=== PATIENT | female | born 1985 | race Caucasian/White ===

== ENCOUNTER 2018-05-14 13:54 | Inpatient (IN) | payer BC, MEDICAID ==
--- NOTE | 2018-05-14 14:27 | ER Document Report ---
ED Cardiac - General Chief Complaint: Chest Pain Stated Complaint: HEADACHE Time Seen by Provider: 05/14/18 14:19 Mode of Arrival: Medic Information source: Patient, Parent - PATIENT'S MOTHER INTERVIEWED @ 1640 HRS. Cannot obtain history due to: Altered mental status - lethargic TRAVEL OUTSIDE OF THE [place] IN LAST 30 DAYS: No - HPI Patient complains to provider of: Chest pain Use of: denies: Alcohol, Amphetamines, Bath salts, Caffeine, Cocaine, Decongestants Was the onset of pain: Gradual When did pain begin: THIS A.M. Is the pain a: New problem Chest pain location: Substernal Quality of pain: Burning Chest pain radiation location: None Severity now: Moderate Severity at worst: Moderate Cardiac risk factors: Diabetes Positive cardiac history: No Associated symptoms: Weakness. denies: Diaphoresis, Fever/chills, Nausea/ vomiting, Shortness of breath, Syncope Exacerbated by: Denies Relieved by: Nothing Similar symptoms previously: No Recently seen / treated by doctor: No Past Medical History - General Information source: Patient, Parent - Social History Smoking Status: Unknown if Ever Smoked Cigarette use (# per day): No Chew tobacco use (# tins/day): No Frequency of alcohol use: None Drug Abuse: None Lives with: Alone Family History: DM Patient has suicidal ideation: No Patient has homicidal ideation: No - Past Medical History Cardiac Medical History: Reports: None Pulmonary Medical History: Reports: None EENT Medical History: Reports: None Endocrine Medical History: Reports: Hx Diabetes Mellitus Type 1 Renal/ Medical History: Reports: None Malignancy Medical History: Reports: None GI Medical History: Reports: None Psychiatric Medical History: Reports: None Traumatic Medical History: Reports: None Past Surgical History: Reports: Hx Breast Surgery - IMPLANTS & SUBSEQUENT REMOVAL Review of Systems - Review of Systems -: Yes ROS unobtainable due to patient's medical condition Physical Exam - Vital signs Vitals: Pulse Ox 98 05/14/18 15:22 Interpretation: Hypotensive, Tachycardic, Tachypneic - General General appearance: Lethargic In distress: None - HEENT Head: Normocephalic Eyes: Normal Conjunctiva: Normal Ears: Normal Nasal: Normal Mouth/Lips: Normal Mucous membranes: Dry - MILDLY Pharynx: Normal Neck: Normal - Respiratory Respiratory status: No respiratory distress Breath sounds: Normal - Cardiovascular Rhythm: Regular, Tachycardia Heart sounds: Normal auscultation Murmur: No - Abdominal Inspection: Normal Distension: No distension Bowel sounds: Hypoactive Tenderness: Nontender - Extremities General upper extremity: Normal inspection General lower extremity: Normal inspection - Neurological Neuro grossly intact: Yes Cognition: Normal Orientation: AAOx4 - Psychological Associated symptoms: Normal affect, Normal mood - Skin Skin Temperature: Warm Skin Moisture: Dry Skin Color: Erythema Skin Turgor: Elastic Course - Vital Signs Vital signs: Temp Pulse Resp BP Pulse Ox 97.3 F 98 05/14/18 15:55 05/14/18 15:22 - Laboratory Result Diagrams: 05/14/18 14:06 05/14/18 14:06 Laboratory results interpreted by me: 05/14/18 05/14/18 05/14/18 14:06 14:06 15:12 WBC 12.3 H Seg Neutrophils % 90.0 H Lymphocytes % 8.8 L Monocytes % 1.0 L Absolute Neutrophils 11.0 H Potassium 5.4 H Carbon Dioxide 9 L* Anion Gap 26 H BUN 21 H Glucose 350 H POC Glucose Total Bilirubin 1.4 H Direct Bilirubin 0.5 H Urine Glucose (UA) >=500 H Urine Ketones 80 H Urine Blood SMALL H 05/14/18 05/14/18 16:01 17:01 WBC Seg Neutrophils % Lymphocytes % Monocytes % Absolute Neutrophils Potassium Carbon Dioxide Anion Gap BUN Glucose POC Glucose 371 H 374 H Total Bilirubin Direct Bilirubin Urine Glucose (UA) Urine Ketones Urine Blood - Diagnostic Test Radiology reviewed: Image reviewed, Reports reviewed - EKG Interpretation by Me EKG shows normal: Sinus rhythm, QRS Complexes, ST-T Waves. abnormal: Thompson, Intervals - LONG QT Rate: Tachycardia Thompson/QRS: Left axis deviation - BORDERLINE - Consults DR. KIM Time consulted: 17:48 Consulted provider: will come to ER Discharge - Discharge Clinical Impression: Diabetic ketoacidosis Qualifiers: Diabetes mellitus type: type 1 Diabetes mellitus complication detail: without coma Qualified Code(s): E10.10 - Type 1 diabetes mellitus with ketoacidosis without coma Condition: Fair Disposition: ADMITTED INPATIENT Admitting Provider: Hospitalist Referrals: SANTINO MUSA MD [Primary Care Provider] - Follow up as needed
[2018-05-14 14:37] LABS: ABSOLUTE LYMPHOCYTES (AUTO) 1.1 10^3/uL (0.5-4.7); ABSOLUTE MONOCYTES (AUTO) 0.1 10^3/uL (0.1-1.4); BASOPHILS % (AUTO) 0.1 % (0-2); EOSINOPHILS % (AUTO) 0.1 % (0-6); HEMATOCRIT 43.5 % (36.0-47.0); HEMOGLOBIN 14.3 g/dL (12.0-15.5); LYMPHOCYTES % (AUTO) 8.8 % (13-45); MEAN CORPUSCULAR HEMOGLOBIN 31.5 pg (27.0-33.4); MEAN CORPUSCULAR VOLUME 95 fl (80-97); PLATELET COUNT 181 10^3/uL (150-450); RED BLOOD COUNT 4.56 10^6/uL (3.72-5.28); RED CELL DISTRIBUTION WIDTH 13.3 % (11.5-14.0); TOTAL CELLS COUNTED % (AUTO) 100 %; WHITE BLOOD COUNT 12.3 10^3/uL (4.0-10.5)
[2018-05-14 14:51] LABS: ALANINE AMINOTRANSFERASE 19 U/L (9-52); ALBUMIN 4.5 g/dL (3.5-5.0); ALKALINE PHOSPHATASE 47 U/L (38-126); ASPARTATE AMINO TRANSFERASE 18 U/L (14-36); BILIRUBIN,DIRECT 0.5 mg/dL (0.0-0.4); BILIRUBIN,TOTAL 1.4 mg/dL (0.2-1.3); BLOOD UREA NITROGEN 21 mg/dL (7-20); CALCIUM 9.2 mg/dL (8.4-10.2); CREATINE KINASE 39 U/L (30-135); GLUCOSE 350 mg/dL (75-110); POTASSIUM 5.4 mmol/L (3.6-5.0); TOTAL PROTEIN 7.5 g/dL (6.3-8.2)
[2018-05-14 15:09] LABS: CHLORIDE 105 mmol/L (98-107); SODIUM 140.4 mmol/L (137-145)
[2018-05-14 15:10] LABS: CREATINE KINASE MB 0.24 ng/mL (<4.55)
[2018-05-14 15:16] LABS: ANION GAP 26 (5-19); CARBON DIOXIDE 9 mmol/L (22-30)
[2018-05-14 15:17] LABS: TROPONIN I < 0.012 ng/mL
[2018-05-14] MEDS ORDERED: NORMAL SALINE 100 ML with INSULIN REGULAR, HUMAN 100 UNIT IV PRN ×2 (15:22)
--- NOTE | 2018-05-14 15:27 | RADIOLOGY REPORT (SQ) ---
EXAM DESCRIPTION: CHEST SINGLE VIEW COMPLETED DATE/TIME: 05/14/2018 3:12 pm REASON FOR STUDY: CHEST PAIN COMPARISON: None. EXAM PARAMETERS: NUMBER OF VIEWS: One view. TECHNIQUE: Single frontal radiographic view of the chest acquired. RADIATION DOSE: NA LIMITATIONS: None. FINDINGS: LUNGS AND PLEURA: No opacities, masses or pneumothorax. No pleural effusion. MEDIASTINUM AND HILAR STRUCTURES: No masses. Contour normal. HEART AND VASCULAR STRUCTURES: Heart normal in size. Normal vasculature. BONES: No acute findings. HARDWARE: None in the chest. OTHER: No other significant finding. IMPRESSION: NO ACUTE RADIOGRAPHIC FINDING IN THE CHEST. TECHNICAL DOCUMENTATION: JOB ID: [id number] [employer]- All Rights Reserved Reading location - IP/workstation name: [email or web address]
[2018-05-14] MEDS ORDERED: INSULIN REG, HUMAN 100 UNIT/ML 3 ML VIAL (PYX) ONE (15:43)
[2018-05-14 15:49] LABS: APPEARANCE,URINE CLEAR; BILIRUBIN,URINE NEGATIVE (NEGATIVE); COLOR,URINE YELLOW; GLUCOSE, URINE >=500 mg/dL (NEGATIVE); KETONES,URINE 80 mg/dL (NEGATIVE); LEUKOCYTE ESTERASE,URINE NEGATIVE (NEGATIVE); NITRITE,URINE NEGATIVE (NEGATIVE); PROTEIN,URINE NEGATIVE (NEGATIVE); URINE SPECIFIC GRAVITY 1.021; UROBILINOGEN,URINE NEGATIVE mg/dL (<2.0)
[2018-05-14] MEDS: NORMAL SALINE 1000 ML 2,000 ML IV PRN ×2 (16:04→19:41)
[2018-05-14 16:07] LABS: URINE AMPHETAMINES SCREEN NEGATIVE; URINE BARBITURATES SCREEN NEGATIVE; URINE BENZODIAZEPINES SCREEN NEGATIVE; URINE COCAINE SCREEN NEGATIVE; URINE MARIJUANA (THC) SCREEN NEGATIVE; URINE METHADONE SCREEN NEGATIVE; URINE PHENCYCLIDINE SCREEN NEGATIVE
[2018-05-14] MEDS ORDERED: NALOXONE HCL INJ/PF 0.4 MG/1 ML SDV IV ONE (16:48)
[2018-05-14 17:28] LABS: VENOUS BLOOD BASE EXCESS -17.1 mmol/L; VENOUS BLOOD HCO3 10.9 mmol/L (20-32)
[2018-05-14] MEDS ORDERED: IPRATROPIUM/ALBUTEROL 0.5-2.5 MG/3 ML AMPUL NEB PRN (18:05)
[2018-05-14] MEDS ORDERED: PROMETHAZINE HCL INJ 25 MG/1 ML VIAL IV PRN (18:05)
[2018-05-14] MEDS ORDERED: ACETAMINOPHEN 325 MG TABLET PO PRN (18:05)
[2018-05-14] MEDS ORDERED: OXYCODONE-ACETAMINOPHEN 5-325 MG TABLET PO PRN (18:05)
[2018-05-14 18:09] LABS: VENOUS BLOOD PH 7.14 (7.30-7.42)
--- NOTE | 2018-05-14 18:27 | PDOC H&P ---
History of Present Illness Admission Date/PCP: SANTINO MUSA MD Patient complains of: This patient presents to the emergency room complaining of headache. She denies any nausea vomiting diaphoresis. She did complain of chest pain. History of Present Illness: CHRISTINA DOUGLAS is a 32 year old female This patient presents to the emergency room complaining of headache. She denies any nausea vomiting diaphoresis. She did complain of chest pain. Patient says she is a type I diabetic although she has not been diabetic for 2 years at the age of 30. She admits to not using her insulin as prescribed in fact she could not determine when she last used it. Her blood sugar had been high but she only decided to come today due to the generalized aches and pain. In the emergency room she was found to be ketotic with pH of 7.1 and a bicarbonate of 10. Her blood sugar was actually only 350. She denies any other pertinent symptoms or complaints Past Medical History Cardiac Medical History: Reports: None Pulmonary Medical History: Reports: None EENT Medical History: Reports: None Endocrine Medical History: Reports: Diabetes Mellitus Type 1 Renal/ Medical History: Reports: None Malignancy Medical History: Reports: None GI Medical History: Reports: None Psychiatric Medical History: Reports: None Traumatic Medical History: Reports: None Past Surgical History Past Surgical History: Reports: None Social History Information Source: Patient Lives with: Alone Smoking Status: Unknown if Ever Smoked Hx Recreational Drug Use: No - Advance Directive Resuscitation Status: Full Code Family History Family History: DM Parental Family History Reviewed: Yes Children Family History Reviewed: NA Sibling(s) Family History Reviewed.: Yes Review of Systems All systems: reviewed and no additional remarkable complaints except as stated Physical Exam Vital Signs: Temp Pulse Resp BP Pulse Ox 97.3 F 26 H 105/78 100 05/14/18 15:55 05/14/18 18:01 05/14/18 18:01 05/14/18 18:01 Intake & Output 05/13/18 05/14/18 05/15/18 06:59 06:59 06:59 Intake Total 7 Balance 7 Weight 67.2 kg General appearance: PRESENT: no acute distress, well-developed, well-nourished Head exam: PRESENT: atraumatic, normocephalic Eye exam: PRESENT: conjunctiva pink, EOMI, PERRLA. ABSENT: scleral icterus Ear exam: PRESENT: normal external ear exam Mouth exam: PRESENT: moist, tongue midline Neck exam: ABSENT: carotid bruit, JVD, lymphadenopathy, thyromegaly Respiratory exam: PRESENT: clear to auscultation claus. ABSENT: rales, rhonchi, wheezes Cardiovascular exam: PRESENT: RRR. ABSENT: diastolic murmur, rubs, systolic murmur Pulses: PRESENT: normal dorsalis pedis pul Vascular exam: PRESENT: normal capillary refill GI/Abdominal exam: PRESENT: normal bowel sounds, soft. ABSENT: distended, guarding, mass, organolmegaly, rebound, tenderness Rectal exam: PRESENT: deferred Extremities exam: PRESENT: full ROM. ABSENT: calf tenderness, clubbing, pedal edema Neurological exam: PRESENT: alert, awake, oriented to person, oriented to place , oriented to time, oriented to situation, CN II-XII grossly intact. ABSENT: motor sensory deficit Psychiatric exam: PRESENT: appropriate affect, normal mood. ABSENT: homicidal ideation, suicidal ideation Skin exam: PRESENT: dry, intact, warm. ABSENT: cyanosis, rash Results Laboratory Results: 05/14/18 14:06 05/14/18 14:06 05/14/18 05/14/18 05/14/18 14:06 14:06 14:06 WBC 12.3 H RBC 4.56 Hgb 14.3 Hct 43.5 MCV 95 MCH 31.5 MCHC 33.0 RDW 13.3 Plt Count 181 Seg Neutrophils % 90.0 H Lymphocytes % 8.8 L Monocytes % 1.0 L Eosinophils % 0.1 Basophils % 0.1 Absolute Neutrophils 11.0 H Absolute Lymphocytes 1.1 Absolute Monocytes 0.1 Absolute Eosinophils 0.0 Absolute Basophils 0.0 VBG pH VBG pCO2 VBG HCO3 VBG Base Excess Sodium 140.4 Potassium 5.4 H Chloride 105 Carbon Dioxide 9 L* Anion Gap 26 H BUN 21 H Creatinine 0.87 Est GFR ( Amer) > 60 Est GFR (Non-Af Amer) > 60 Glucose 350 H Calcium 9.2 Total Bilirubin 1.4 H AST 18 ALT 19 Alkaline Phosphatase 47 Total Protein 7.5 Albumin 4.5 Serum HCG, Qual NEGATIVE Urine Color Urine Appearance Urine pH Ur Specific [place] Urine Protein Urine Glucose (UA) Urine Ketones Urine Blood Urine Nitrite Ur Leukocyte Esterase Urine WBC (Auto) 08/08/2105/14/18 05/14/18 15:12 15:51 17:02 WBC RBC Hgb Hct MCV MCH MCHC RDW Plt Count Seg Neutrophils % Lymphocytes % Monocytes % Eosinophils % Basophils % Absolute Neutrophils Absolute Lymphocytes Absolute Monocytes Absolute Eosinophils Absolute Basophils VBG pH Cancelled 7.14 L* VBG pCO2 Cancelled 33.0 L VBG HCO3 Cancelled 10.9 L VBG Base Excess Cancelled -17.1 Sodium Potassium Chloride Carbon Dioxide Anion Gap BUN Creatinine Est GFR ( Amer) Est GFR (Non-Af Amer) Glucose Calcium Total Bilirubin AST ALT Alkaline Phosphatase Total Protein Albumin Serum HCG, Qual Urine Color YELLOW Urine Appearance CLEAR Urine pH 5.0 Ur Specific [place] 1.021 Urine Protein NEGATIVE Urine Glucose (UA) >=500 H Urine Ketones 80 H Urine Blood SMALL H Urine Nitrite NEGATIVE Ur Leukocyte Esterase NEGATIVE Urine WBC (Auto) 2 05/14/18 05/14/18 14:06 14:06 Creatine Kinase 39 CK-MB (CK-2) 0.24 Troponin I < 0.012 Impressions: Chest X-Ray 05/14/18 14:21 IMPRESSION: NO ACUTE RADIOGRAPHIC FINDING IN THE CHEST. Assessment & Plan - Diagnosis (1) Diabetic ketoacidosis Qualifiers: Diabetes mellitus type: type 1 Is this a current diagnosis for this admission?: Yes (2) Dehydration Is this a current diagnosis for this admission?: Yes - Time Time Spent: 30 to 50 Minutes Medications reviewed and adjusted accordingly: Yes Anticipated discharge: Home Within: within 48 hours - Inpatient Certification Based on my medical assessment, after consideration of the patient's comorbidities, presenting symptoms, or acuity I expect that the services needed warrant INPATIENT care.: Yes Medical Necessity: Need For IV Fluids, Risk of Complication if Not Cared For in Hospital, Risk of Diagnosis Which Will Require Inpatient Eval/Care/Monitoring
--- NOTE | 2018-05-14 21:11 | EKG REPORT ---
SEVERITY:- ABNORMAL ECG - SINUS TACHYCARDIA BORDERLINE LEFT AXIS DEVIATION PROLONGED QT INTERVAL : Confirmed by: June Grimm MD 14-May-2018 21:09:47
[2018-05-14] MEDS ORDERED: INSULIN, REGULAR 100 UNIT/100 ML NORMAL SALINE IV PRN ×2 (21:45)
[2018-05-14] MEDS: FAMOTIDINE 20 MG TABLET PO SCH (21:57)
[2018-05-14 22:25] LABS: ANION GAP 11 (5-19); BLOOD UREA NITROGEN 20 mg/dL (7-20); CALCIUM 8.3 mg/dL (8.4-10.2); CARBON DIOXIDE 13 mmol/L (22-30); CHLORIDE 117 mmol/L (98-107); GLUCOSE 142 mg/dL (75-110); SODIUM 141.3 mmol/L (137-145)
[2018-05-14 22:39] LABS: POTASSIUM 4.1 mmol/L (3.6-5.0)
[2018-05-15] MEDS: DEXTROSE 5%-1/2 NORMAL SALINE 1,000 ML IV PRN ×2 (00:22→06:53)
[2018-05-15 07:03] LABS: HEMATOCRIT 35.1 % (36.0-47.0); MEAN CORPUSCULAR HEMOGLOBIN 32.4 pg (27.0-33.4); MEAN CORPUSCULAR HGB CONC 34.6 g/dL (32.0-36.0); MEAN CORPUSCULAR VOLUME 94 fl (80-97); PLATELET COUNT 158 10^3/uL (150-450); RED BLOOD COUNT 3.75 10^6/uL (3.72-5.28); RED CELL DISTRIBUTION WIDTH 13.1 % (11.5-14.0); WHITE BLOOD COUNT 14.9 10^3/uL (4.0-10.5)
[2018-05-15 07:22] LABS: HEMOGLOBIN 12.1 g/dL (12.0-15.5)
[2018-05-15 07:37] LABS: ANION GAP 10 (5-19); BLOOD UREA NITROGEN 16 mg/dL (7-20); CALCIUM 8.5 mg/dL (8.4-10.2); CARBON DIOXIDE 17 mmol/L (22-30); CHLORIDE 115 mmol/L (98-107); GLUCOSE 60 mg/dL (75-110); POTASSIUM 3.9 mmol/L (3.6-5.0); SODIUM 142.4 mmol/L (137-145)
[2018-05-15] MEDS ORDERED: INSULIN, REGULAR 100 UNIT/100 ML NORMAL SALINE IV PRN ×2 (08:40)
[2018-05-15] MEDS ORDERED: DEXTROSE 40% GEL 15 GM TUBE PO PRN (08:41)
[2018-05-15] MEDS ORDERED: DEXTROSE 50%-WATER SYRINGE 12.5 GM/25 ML DOSE IV PRN (08:41)
[2018-05-15] MEDS ORDERED: DEXTROSE 50%-WATER SYRINGE 25 GM/50 ML DOSE IV PRN (08:41)
[2018-05-15] MEDS ORDERED: GLUCAGON,HUMAN RECOMB 1 MG INJ IM PRN (08:41)
[2018-05-15] MEDS ORDERED: DEXTROSE 40% GEL 15 GM TUBE X 2 PO PRN (08:41)
[2018-05-15] MEDS: FAMOTIDINE 20 MG TABLET PO SCH ×2 (10:09→23:51)
[2018-05-15] MEDS: ENOXAPARIN SODIUM INJ 40 MG/0.4 ML DISP.SYRIN SUBCUT SCH (10:12)
[2018-05-15] MEDS: NORMAL SALINE 1000 ML 1,000 ML IV PRN ×2 (12:28→23:53)
--- NOTE | 2018-05-15 13:11 | PDOC PROGRESS REPORT ---
Subjective Progress Note for:: 05/15/18 Subjective:: Patient feels a lot better today. In fact she is awake and alert. She says she is not able to afford her insulin that is why she has not been taking it as prescribed. She is unemployed and has no insurance and has no means of obtaining her insulin. Acidosis has improved with CO2 been up to 17. Still on the insulin drip but we will recheck a BMP and adjust as needed for transfer was hypokalemic and this young lady to obtain on insulin. I have explained to her that she really needs to be compliant Reason For Visit: DKA Physical Exam Vital Signs: Temp Pulse Resp BP Pulse Ox 98.2 F 75 16 100/52 L 99 05/15/18 07:47 05/15/18 07:47 05/15/18 07:47 05/15/18 07:47 05/15/18 07:47 Intake & Output 05/14/18 05/15/18 05/16/18 06:59 06:59 06:59 Intake Total 5406 6 Balance 5406 6 Weight 66.3 kg General appearance: PRESENT: no acute distress, well-developed, well-nourished Head exam: PRESENT: atraumatic, normocephalic Eye exam: PRESENT: conjunctiva pink, EOMI, PERRLA. ABSENT: scleral icterus Ear exam: PRESENT: normal external ear exam Mouth exam: PRESENT: moist, tongue midline Neck exam: ABSENT: carotid bruit, JVD, lymphadenopathy, thyromegaly Respiratory exam: PRESENT: clear to auscultation claus. ABSENT: rales, rhonchi, wheezes Cardiovascular exam: PRESENT: RRR. ABSENT: diastolic murmur, rubs, systolic murmur Pulses: PRESENT: normal dorsalis pedis pul Vascular exam: PRESENT: normal capillary refill GI/Abdominal exam: PRESENT: normal bowel sounds, soft. ABSENT: distended, guarding, mass, organolmegaly, rebound, tenderness Rectal exam: PRESENT: deferred Extremities exam: PRESENT: full ROM. ABSENT: calf tenderness, clubbing, pedal edema Neurological exam: PRESENT: alert, awake, oriented to person, oriented to place , oriented to time, oriented to situation, CN II-XII grossly intact. ABSENT: motor sensory deficit Psychiatric exam: PRESENT: appropriate affect, normal mood. ABSENT: homicidal ideation, suicidal ideation Skin exam: PRESENT: dry, intact, warm. ABSENT: cyanosis, rash Results Laboratory Results: 05/15/18 06:21 05/15/18 06:21 05/14/18 05/15/18 05/15/18 22:05 06:21 06:21 WBC 14.9 H RBC 3.75 Hgb 12.1 D Hct 35.1 L MCV 94 MCH 32.4 MCHC 34.6 RDW 13.1 Plt Count 158 Sodium 141.3 142.4 Potassium 4.1 D 3.9 Chloride 117 H 115 H Carbon Dioxide 13 L 17 L Anion Gap 11 10 BUN 20 16 Creatinine 0.74 0.73 Est GFR ( Amer) > 60 > 60 Est GFR (Non-Af Amer) > 60 > 60 Glucose 142 H 60 L Calcium 8.3 L 8.5 Impressions: Chest X-Ray 05/14/18 14:21 IMPRESSION: NO ACUTE RADIOGRAPHIC FINDING IN THE CHEST. Assessment & Plan - Diagnosis (1) Diabetic ketoacidosis Qualifiers: Diabetes mellitus type: type 1 Is this a current diagnosis for this admission?: Yes (2) Dehydration Is this a current diagnosis for this admission?: Yes - Time Time Spent with patient: 15-24 minutes Medications reviewed and adjusted accordingly: Yes Anticipated discharge: Home Within: within 48 hours - Inpatient Certification Based on my medical assessment, after consideration of the patient's comorbidities, presenting symptoms, or acuity I expect that the services needed warrant INPATIENT care.: Yes Medical Necessity: Need For IV Fluids, Risk of Complication if Not Cared For in Hospital - Plan Summary Plan Summary: Plan is to continue with insulin and change her to subcutaneous insulin as soon as feasible. We will get social service involved to see what we can do to help her to ensure she is able to obtain insulin
[2018-05-15] MEDS ORDERED: INSULIN LISPRO 100 UNIT/ML 3 ML VIAL SUBCUT ONE (13:30)
[2018-05-15 15:40] LABS: ANION GAP 11 (5-19); BLOOD UREA NITROGEN 12 mg/dL (7-20); CALCIUM 8.3 mg/dL (8.4-10.2); CARBON DIOXIDE 17 mmol/L (22-30); CHLORIDE 112 mmol/L (98-107); GLUCOSE 249 mg/dL (75-110); POTASSIUM 4.2 mmol/L (3.6-5.0); SODIUM 139.9 mmol/L (137-145)
[2018-05-15] MEDS: HUM INSULIN NPH/REG INSULIN HM 100 UNIT/1 ML 3 ML SUBCUT SCH (17:16)
[2018-05-15] MEDS ORDERED: INSULIN GLARGINE,HUM.REC.ANLOG 300 UNIT/3 ML INSULN.PEN SUBCUT ONE (23:54)
[2018-05-15] MEDS: INSULIN GLARGINE,HUM.REC.ANLOG 300 UNIT/3 ML INSULN.PEN SUBCUT SCH (23:59)
[2018-05-16 06:21] LABS: ANION GAP 11 (5-19); BLOOD UREA NITROGEN 11 mg/dL (7-20); CALCIUM 7.5 mg/dL (8.4-10.2); CARBON DIOXIDE 18 mmol/L (22-30); CHLORIDE 111 mmol/L (98-107); GLUCOSE 225 mg/dL (75-110); SODIUM 139.6 mmol/L (137-145)
[2018-05-16] MEDS: HUM INSULIN NPH/REG INSULIN HM 100 UNIT/1 ML 3 ML SUBCUT SCH ×2 (08:11→16:22)
[2018-05-16] MEDS: NORMAL SALINE 1000 ML 1,000 ML IV PRN (08:12)
[2018-05-16] MEDS: FAMOTIDINE 20 MG TABLET PO SCH ×2 (09:21→22:10)
[2018-05-16] MEDS: ENOXAPARIN SODIUM INJ 40 MG/0.4 ML DISP.SYRIN SUBCUT SCH (09:21)
--- NOTE | 2018-05-16 13:53 | PDOC DISCHARGE SUMMARY ---
General - Admit/Disc Date/PCP Admission Date/Primary Care Provider: 05/14/18 18:57 Discharge Date: 05/16/18 - Discharge Diagnosis (1) Diabetic ketoacidosis Is this a current diagnosis for this admission?: Yes (2) Dehydration Is this a current diagnosis for this admission?: Yes - Additional Information Resuscitation Status: Full Code Discharge Diet: Diabetic Discharge Activity: Activity As Tolerated Prescriptions: Insulin Glargine,Hum.rec.anlog [Lantus Insulin 100 Unit/mL] 10 unit SUBCUT QHS # 1 insuln.pen Hum Insulin NPH/Reg Insulin Hm [Insulin 70-30 (NPH/Reg) 100 unit/mL] 15 unit SUBCUT BIDACBS #1 vial Home Medications: Aspirin/Acetaminophen/Caffeine [Excedrin Migraine Caplet] 2 each PO Q8HP PRN 09/20 Insulin Glulisine [Apidra Insulin (Glulisine) 100 unit/mL] 0 unit SUBCUT .SLIDINGSCALE 05/15/18 Hum Insulin NPH/Reg Insulin Hm [Insulin 70-30 (NPH/Reg) 100 unit/mL] 15 unit SUBCUT BIDACBS #1 vial 05/16/18 Insulin Glargine,Hum.rec.anlog [Lantus Insulin 100 Unit/mL] 10 unit SUBCUT QHS # 1 insuln.pen 05/16/18 History of Present Illness History of Present Illness: CHRISTINA DOUGLAS is a 32 year old female This patient presents to the emergency room complaining of headache. She denies any nausea vomiting diaphoresis. She did complain of chest pain. Patient says she is a type I diabetic although she has not been diabetic for 2 years at the age of 30. She admits to not using her insulin as prescribed in fact she could not determine when she last used it. Her blood sugar had been high but she only decided to come today due to the generalized aches and pain. In the emergency room she was found to be ketotic with pH of 7.1 and a bicarbonate of 10. Her blood sugar was actually only 350. She denies any other pertinent symptoms or complaints Physical Exam Vital Signs: Temp Pulse Resp BP Pulse Ox 98.0 F 55 L 16 110/63 99 05/16/18 11:05 05/16/18 12:40 05/16/18 12:40 05/16/18 11:05 05/16/18 12:40 Intake & Output 05/15/18 05/16/18 05/17/18 06:59 06:59 06:59 Intake Total 5406 3020 233 Balance 5406 3020 233 Weight 66.3 kg 66.8 kg General appearance: PRESENT: no acute distress, well-developed, well-nourished Head exam: PRESENT: atraumatic, normocephalic Eye exam: PRESENT: conjunctiva pink, EOMI, PERRLA. ABSENT: scleral icterus Ear exam: PRESENT: normal external ear exam Mouth exam: PRESENT: moist, tongue midline Neck exam: ABSENT: carotid bruit, JVD, lymphadenopathy, thyromegaly Respiratory exam: PRESENT: clear to auscultation claus. ABSENT: rales, rhonchi, wheezes Cardiovascular exam: PRESENT: RRR. ABSENT: diastolic murmur, rubs, systolic murmur Pulses: PRESENT: normal dorsalis pedis pul Vascular exam: PRESENT: normal capillary refill GI/Abdominal exam: PRESENT: normal bowel sounds, soft. ABSENT: distended, guarding, mass, organolmegaly, rebound, tenderness Rectal exam: PRESENT: deferred Extremities exam: PRESENT: full ROM. ABSENT: calf tenderness, clubbing, pedal edema Neurological exam: PRESENT: alert, awake, oriented to person, oriented to place , oriented to time, oriented to situation, CN II-XII grossly intact. ABSENT: motor sensory deficit Psychiatric exam: PRESENT: appropriate affect, normal mood. ABSENT: homicidal ideation, suicidal ideation Skin exam: PRESENT: dry, intact, warm. ABSENT: cyanosis, rash Results Laboratory Results: 05/15/18 06:21 05/16/18 05:40 05/15/18 05/16/18 15:02 05:40 Sodium 139.9 139.6 Potassium 4.2 4.0 Chloride 112 H 111 H Carbon Dioxide 17 L 18 L Anion Gap 11 11 BUN 12 11 Creatinine 0.81 0.60 Est GFR ( Amer) > 60 > 60 Est GFR (Non-Af Amer) > 60 > 60 Glucose 249 H 225 H Calcium 8.3 L 7.5 L Impressions: Chest X-Ray 05/14/18 14:21 IMPRESSION: NO ACUTE RADIOGRAPHIC FINDING IN THE CHEST. Qualifiers - * PATIENT BEING DISCHARGED WITH ANY OF THE FOLLOWING DIAGNOSIS: No Plan Time Spent: Less than 30 Minutes
[2018-05-16] MEDS: INSULIN REG, HUMAN 100 UNIT/ML 3 ML VIAL (PYX) SUBCUT PRN (16:22)
--- NOTE | 2018-05-16 16:49 | PDOC PROGRESS REPORT ---
Subjective Progress Note for:: 05/16/18 Subjective:: Patient feels a lot better today. In fact she is awake and alert. She says she is not able to afford her insulin that is why she has not been taking it as prescribed. She is unemployed and has no insurance and has no means of obtaining her insulin. Acidosis has improved with CO2 been up to 17. Still on the insulin drip but we will recheck a BMP and adjust as needed. I have explained to her that she really needs to be compliant Also Reason For Visit: DKA Physical Exam Vital Signs: Temp Pulse Resp BP Pulse Ox 98.4 F 47 L 16 118/61 100 05/16/18 15:58 05/16/18 15:58 05/16/18 12:40 05/16/18 15:58 05/16/18 15:58 Intake & Output 05/15/18 05/16/18 05/17/18 06:59 06:59 06:59 Intake Total 5406 3020 233 Balance 5406 3020 233 Weight 66.3 kg 66.8 kg General appearance: PRESENT: no acute distress, well-developed, well-nourished Head exam: PRESENT: atraumatic, normocephalic Eye exam: PRESENT: conjunctiva pink, EOMI, PERRLA. ABSENT: scleral icterus Ear exam: PRESENT: normal external ear exam Mouth exam: PRESENT: moist, tongue midline Neck exam: ABSENT: carotid bruit, JVD, lymphadenopathy, thyromegaly Respiratory exam: PRESENT: clear to auscultation claus. ABSENT: rales, rhonchi, wheezes Cardiovascular exam: PRESENT: RRR. ABSENT: diastolic murmur, rubs, systolic murmur Pulses: PRESENT: normal dorsalis pedis pul Vascular exam: PRESENT: normal capillary refill GI/Abdominal exam: PRESENT: normal bowel sounds, soft. ABSENT: distended, guarding, mass, organolmegaly, rebound, tenderness Rectal exam: PRESENT: deferred Extremities exam: PRESENT: full ROM. ABSENT: calf tenderness, clubbing, pedal edema Neurological exam: PRESENT: alert, awake, oriented to person, oriented to place , oriented to time, oriented to situation, CN II-XII grossly intact. ABSENT: motor sensory deficit Psychiatric exam: PRESENT: appropriate affect, normal mood. ABSENT: homicidal ideation, suicidal ideation Skin exam: PRESENT: dry, intact, warm. ABSENT: cyanosis, rash Results Laboratory Results: 05/15/18 06:21 05/16/18 05:40 05/16/18 05:40 Sodium 139.6 Potassium 4.0 Chloride 111 H Carbon Dioxide 18 L Anion Gap 11 BUN 11 Creatinine 0.60 Est GFR ( Amer) > 60 Est GFR (Non-Af Amer) > 60 Glucose 225 H Calcium 7.5 L Impressions: Chest X-Ray 05/14/18 14:21 IMPRESSION: NO ACUTE RADIOGRAPHIC FINDING IN THE CHEST. Assessment & Plan - Diagnosis (1) Diabetic ketoacidosis Qualifiers: Diabetes mellitus type: type 1 Is this a current diagnosis for this admission?: Yes (2) Dehydration Is this a current diagnosis for this admission?: Yes (3) Sinus bradycardia Is this a current diagnosis for this admission?: Yes - Time Time Spent with patient: 15-24 minutes Medications reviewed and adjusted accordingly: Yes Anticipated discharge: Home Within: within 24 hours - Inpatient Certification Based on my medical assessment, after consideration of the patient's comorbidities, presenting symptoms, or acuity I expect that the services needed warrant INPATIENT care.: Yes Medical Necessity: Need For Continuous Telemetry Monitoring, Risk of Complication if Not Cared For in Hospital - Plan Summary Plan Summary: I have confirmed with Antonio that she can obtain 70/30 insulin for $24.99 per bottle. The plan had been to discharge her today however her blood sugar went up to 400 this afternoon and so discharge is on hold. Will adjust her insulin and continue with sliding scale insulin and if her blood sugars controlled she can be discharged in a.m. Patient was also noted to be bradycardic. Etiology not quite clear. She is asymptomatic. This may be a baseline but I think she should be monitored at least another night. Been advised to ambulate and be more active while in hospital and will monitor her heart rate
[2018-05-16] MEDS ORDERED: INSULIN LISPRO 100 UNIT/ML 3 ML VIAL SUBCUT ONE (17:45)
[2018-05-16] MEDS: INSULIN GLARGINE,HUM.REC.ANLOG 300 UNIT/3 ML INSULN.PEN SUBCUT SCH (22:11)
[2018-05-17 06:33] LABS: ABSOLUTE EOSINOPHILS # (AUTO) 0.2 10^3/uL (0.0-0.6); ABSOLUTE LYMPHOCYTES (AUTO) 3.4 10^3/uL (0.5-4.7); ABSOLUTE MONOCYTES (AUTO) 0.6 10^3/uL (0.1-1.4); ABSOLUTE NEUT (AUTO) 3.4 10^3/uL (1.7-8.2); BASOPHILS % (AUTO) 0.5 % (0-2); EOSINOPHILS % (AUTO) 2.1 % (0-6); HEMATOCRIT 32.8 % (36.0-47.0); HEMOGLOBIN 11.4 g/dL (12.0-15.5); MEAN CORPUSCULAR HEMOGLOBIN 32.7 pg (27.0-33.4); MEAN CORPUSCULAR HGB CONC 34.8 g/dL (32.0-36.0); MEAN CORPUSCULAR VOLUME 94 fl (80-97); MONOCYTES % (AUTO) 7.6 % (3-13); PLATELET COUNT 125 10^3/uL (150-450); RED CELL DISTRIBUTION WIDTH 13.2 % (11.5-14.0); SEGMENTED NEUTROPHILS % (AUTO) 44.8 % (42-78); TOTAL CELLS COUNTED % (AUTO) 100 %; WHITE BLOOD COUNT 7.5 10^3/uL (4.0-10.5)
[2018-05-17 06:50] LABS: ANION GAP 9 (5-19); BLOOD UREA NITROGEN 14 mg/dL (7-20); CALCIUM 8.3 mg/dL (8.4-10.2); CARBON DIOXIDE 22 mmol/L (22-30); CHLORIDE 108 mmol/L (98-107); GLUCOSE 255 mg/dL (75-110); POTASSIUM 4.1 mmol/L (3.6-5.0); SODIUM 139.4 mmol/L (137-145)
[2018-05-17] MEDS: HUM INSULIN NPH/REG INSULIN HM 100 UNIT/1 ML 3 ML SUBCUT SCH ×2 (07:37→15:16)
[2018-05-17] MEDS: INSULIN REG, HUMAN 100 UNIT/ML 3 ML VIAL (PYX) SUBCUT PRN (08:44)
[2018-05-17] MEDS: FAMOTIDINE 20 MG TABLET PO SCH (09:31)
[2018-05-17] MEDS: ENOXAPARIN SODIUM INJ 40 MG/0.4 ML DISP.SYRIN SUBCUT SCH (09:31)
[2018-05-17 15:41] VITALS: BP 105/49
--- NOTE | 2018-05-17 19:03 | PDOC DISCHARGE SUMMARY ---
General - Admit/Disc Date/PCP Admission Date/Primary Care Provider: 05/14/18 18:57 Discharge Date: 05/17/18 - Discharge Diagnosis (1) Diabetic ketoacidosis Is this a current diagnosis for this admission?: Yes - Additional Information Resuscitation Status: Full Code Discharge Diet: Diabetic Discharge Activity: Activity As Tolerated Prescriptions: Hum Insulin NPH/Reg Insulin Hm [Insulin 70-30 (NPH/Reg) 100 unit/mL] 15 unit SUBCUT BIDACBS #1 vial Insulin Glargine,Hum.rec.anlog [Lantus Insulin 100 Unit/mL] 10 unit SUBCUT QHS # 1 insuln.pen Home Medications: Aspirin/Acetaminophen/Caffeine [Excedrin Migraine Caplet] 2 each PO Q8HP PRN 09/20 Insulin Glulisine [Apidra Insulin (Glulisine) 100 unit/mL] 0 unit SUBCUT .SLIDINGSCALE 05/15/18 Hum Insulin NPH/Reg Insulin Hm [Insulin 70-30 (NPH/Reg) 100 unit/mL] 15 unit SUBCUT BIDACBS #1 vial 05/16/18 Insulin Glargine,Hum.rec.anlog [Lantus Insulin 100 Unit/mL] 10 unit SUBCUT QHS # 1 insuln.pen 05/16/18 History of Present Illness History of Present Illness: MARC DOUGLAS is a 32 year old female This patient presents to the emergency room complaining of headache. She denies any nausea vomiting diaphoresis. She did complain of chest pain. Patient says she is a type I diabetic although she has not been diabetic for 2 years at the age of 30. She admits to not using her insulin as prescribed in fact she could not determine when she last used it. Her blood sugar had been high but she only decided to come today due to the generalized aches and pain. In the emergency room she was found to be ketotic with pH of 7.1 and a bicarbonate of 10. Her blood sugar was actually only 350. She denies any other pertinent symptoms or complaints. Hospital Course Hospital Course: Ms. Douglas was admitted for diabetic ketoacidosis secondary to noncompliance. Patient does admit that she has not been using her insulin regimen appropriately because she has currently no insurance is not and is unable to afford her insulin regimen. She was initially placed on insulin drip. She was given IV fluids. Her DKA resolved. She was supposed to be discharged yesterday however her sugars were still running on the high side hence was given another day for better glycemic control. She did not have any acute event overnight. Her sugars are better controlled. She was supposed to be on Apidra sliding scale along with Lantus at home. However due to insurance issues she was switched to Lantus and 70/30 twice daily dosing as it is more affordable for her. Her sugars have been better controlled with the twice daily dosing of 7030. Plan was to ideally discharge her on Lantus and a fixed dose of Humalog pre-meals. However she has no insurance and discharge planning have exhausted means to help her with procuring her insulin regimen at home, she can only afford using Lantus and 70/30 at home. She will be this discharged on her current regimen that controlled her sugars inpatient. She will follow-up with her new PCP and an clinical technologist for further titration of her diabetic regimen. Physical Exam Vital Signs: Temp Pulse Resp BP Pulse Ox 98.0 F 51 L 16 105/49 L 100 05/17/18 15:38 05/17/18 15:38 05/17/18 15:38 05/17/18 15:38 05/17/18 15:38 Intake & Output 05/16/18 05/17/18 05/18/18 06:59 06:59 06:59 Intake Total 3020 7 337 Balance 3020 2056 337 Weight 147 lb 4.301 oz 151 lb 3.794 oz General appearance: PRESENT: no acute distress, well-developed, well-nourished Head exam: PRESENT: atraumatic, normocephalic Eye exam: PRESENT: conjunctiva pink, EOMI, PERRLA. ABSENT: scleral icterus Neck exam: ABSENT: carotid bruit, JVD, lymphadenopathy, thyromegaly Respiratory exam: PRESENT: clear to auscultation claus. ABSENT: rales, rhonchi, wheezes Cardiovascular exam: PRESENT: RRR. ABSENT: diastolic murmur, rubs, systolic murmur Vascular exam: PRESENT: normal capillary refill GI/Abdominal exam: PRESENT: normal bowel sounds, soft. ABSENT: distended, guarding, mass, organolmegaly, rebound, tenderness Rectal exam: PRESENT: deferred Neurological exam: PRESENT: alert, awake, oriented to person, oriented to place , oriented to time, oriented to situation, CN II-XII grossly intact. ABSENT: motor sensory deficit Results Laboratory Results: 05/17/18 05:35 05/17/18 05:35 05/17/18 05/17/18 05:35 05:35 WBC 7.5 RBC 3.50 L Hgb 11.4 L Hct 32.8 L MCV 94 MCH 32.7 MCHC 34.8 RDW 13.2 Plt Count 125 L Seg Neutrophils % 44.8 Lymphocytes % 45.0 Monocytes % 7.6 Eosinophils % 2.1 Basophils % 0.5 Absolute Neutrophils 3.4 Absolute Lymphocytes 3.4 Absolute Monocytes 0.6 Absolute Eosinophils 0.2 Absolute Basophils 0.0 Sodium 139.4 Potassium 4.1 Chloride 108 H Carbon Dioxide 22 Anion Gap 9 BUN 14 Creatinine 0.73 Est GFR ( Amer) > 60 Est GFR (Non-Af Amer) > 60 Glucose 255 H Calcium 8.3 L Magnesium 1.8 Impressions: Chest X-Ray 05/14/18 14:21 IMPRESSION: NO ACUTE RADIOGRAPHIC FINDING IN THE CHEST. Qualifiers - * PATIENT BEING DISCHARGED WITH ANY OF THE FOLLOWING DIAGNOSIS: No VTE patient discharged on overlapping Therapy?: Yes
== END 2018-05-17 16:02 | disposition home or self-care (01) | DRG 639 ==
LOC: ER 13:54 → EH 18:57 → 3S 21:02
PROVIDERS: ADMIT Internal Medicine; ATTEND Internal Medicine
DX: E10.10 Type 1 diabetes mellitus with ketoacidosis without coma (principal); T38.3X6A Underdosing of insulin and oral hypoglycemic [antidiabetic] drugs, initial encounter; E87.6 Hypokalemia; E86.0 Dehydration; R07.9 Chest pain, unspecified; Z91.120 Patient's intentional underdosing of medication regimen due to financial hardship; Y92.098 Other place in other non-institutional residence as the place of occurrence of the external cause
CPT/HCPCS: 36415; 71045; 80048; 80053; 80307; 81001; 82550; 82553; 82803; 82962; 83735; 84484; 84703; 85025; 85027; 87040; 93005; 93010; 96374; 99285; J1650; J1815; J2310; J7030

== ENCOUNTER 2018-11-17 17:10 | Inpatient (IN) | payer SELFPAY ==
[2018-11-17] MEDS ORDERED: GLUCAGON,HUMAN RECOMB 1 MG INJ IM PRN ×2 (17:33→19:15)
[2018-11-17] MEDS ORDERED: DEXTROSE 40% GEL 15 GM TUBE PO PRN ×4 (17:33→19:15)
[2018-11-17] MEDS ORDERED: DEXTROSE 50%-WATER 25 GM/50 ML DISP.SYRIN IV PRN ×4 (17:33→19:15)
[2018-11-17] MEDS ORDERED: NORMAL SALINE 100 ML with INSULIN REGULAR, HUMAN 100 UNIT IV PRN ×2 (17:33)
[2018-11-17] MEDS ORDERED: INSULIN REG, HUMAN 100 UNIT/ML 3 ML VIAL (PYX) IV ONE (17:37)
[2018-11-17] MEDS: NORMAL SALINE 1000 ML 1,000 ML IV PRN ×2 (17:51→18:35)
[2018-11-17] MEDS ORDERED: INSULIN REG, HUMAN 100 UNIT/ML 3 ML VIAL (PYX) ONE (17:58)
[2018-11-17 18:04] LABS: VENOUS BLOOD BASE EXCESS -24.4 mmol/L; VENOUS BLOOD HCO3 4.7 mmol/L (20-32)
[2018-11-17 18:06] LABS: HEMATOCRIT 47.4 % (36.0-47.0); HEMOGLOBIN 14.2 g/dL (12.0-15.5); MEAN CORPUSCULAR HEMOGLOBIN 32.2 pg (27.0-33.4); MEAN CORPUSCULAR VOLUME 107 fl (80-97); PLATELET COUNT 354 10^3/uL (150-450); RED BLOOD COUNT 4.41 10^6/uL (3.72-5.28); RED CELL DISTRIBUTION WIDTH 16.5 % (11.5-14.0); WHITE BLOOD COUNT 23.3 10^3/uL (4.0-10.5)
[2018-11-17 18:19] LABS: APPEARANCE,URINE SLIGHTLY-CLOUDY; BILIRUBIN,URINE NEGATIVE (NEGATIVE); COLOR,URINE STRAW; GLUCOSE, URINE >=500 mg/dL (NEGATIVE); KETONES,URINE 80 mg/dL (NEGATIVE); LEUKOCYTE ESTERASE,URINE SMALL (NEGATIVE); NITRITE,URINE NEGATIVE (NEGATIVE); PROTEIN,URINE NEGATIVE (NEGATIVE); URINE SPECIFIC GRAVITY 1.022; UROBILINOGEN,URINE NEGATIVE mg/dL (<2.0)
[2018-11-17 18:23] LABS: ALANINE AMINOTRANSFERASE 24 U/L (9-52); ALBUMIN 4.8 g/dL (3.5-5.0); ALKALINE PHOSPHATASE 90 U/L (38-126); ASPARTATE AMINO TRANSFERASE 38 U/L (14-36); BILIRUBIN,DIRECT 0.5 mg/dL (0.0-0.4); BILIRUBIN,TOTAL 0.5 mg/dL (0.2-1.3); BLOOD UREA NITROGEN 21 mg/dL (7-20); LIPASE 18.3 U/L (23-300); TOTAL PROTEIN 7.1 g/dL (6.3-8.2)
[2018-11-17 18:36] LABS: CHLORIDE 98 mmol/L (98-107); POTASSIUM 5.7 mmol/L (3.6-5.0); SODIUM 141.2 mmol/L (137-145)
[2018-11-17 18:44] LABS: CARBON DIOXIDE < 5 mmol/L (22-30); GLUCOSE 940 mg/dL (75-110)
--- NOTE | 2018-11-17 18:44 | ER Document Report ---
ED Blood Sugar Problem - General Chief Complaint: High Blood Sugar Stated Complaint: VOMITING Time Seen by Provider: 11/17/18 17:25 Notes: Patient is here because her blood sugar is high. She is on insulin dependent diabetic. We have no other information on the patient. She was dropped off at the front end specialist here by someone. Reviewing the patient's past records shows she was admitted here in May 2018 for DKA. Those records did not indicate that the patient had any other medical problems. Became an insulin-dependent diabetic a couple years prior to that admission. TRAVEL OUTSIDE OF THE [place] IN LAST 30 DAYS: No - Related Data Allergies/Adverse Reactions: cefaclor [From Ceclor] Allergy (Verified 11/17/18 17:12) Past Medical History - Social History Smoking Status: Unknown if Ever Smoked Family History: Reviewed & Not Pertinent, DM Patient has suicidal ideation: No Patient has homicidal ideation: No Neurological Medical History: Reports: Hx Migraine Endocrine Medical History: Reports: Hx Diabetes Mellitus Type 1 Renal/ Medical History: Denies: Hx Peritoneal Dialysis Past Surgical History: Reports: Hx Breast Surgery - IMPLANTS & SUBSEQUENT REMOVAL Review of Systems - Review of Systems -: Yes ROS unobtainable due to patient's medical condition Physical Exam - Vital signs Vitals: Pulse BP Pulse Ox 113 H 131/68 H 100 11/17/18 17:18 11/17/18 17:18 11/17/18 17:18 Interpretation: Tachycardic, Tachypneic. No: Febrile Notes: PHYSICAL EXAMINATION: GENERAL: Patient is hyperventilating. Heart rate about 120 on the monitor. Confused and not able to answer questions appropriately at this time. Actively vomiting HEAD: Atraumatic, normocephalic. EYES: Pupils equal round and reactive to light, extraocular movements intact. ENT: oropharynx clear without exudates. Moist mucous membranes. NECK: Normal range of motion, supple. LUNGS: Breath sounds clear and equal bilaterally. HEART: Regular rate and rhythm without murmurs. Heart rate 120. ABDOMEN: Soft, nontender. No guarding or rebound. No masses. BACK: No tenderness throughout entire back. EXTREMITIES: Normal range of motion without pain. NEUROLOGICAL: Unable to assess except the patient is moving all 4 extremities. Unable to cooperate for full exam at this time. Confused. PSYCH: Normal mood, normal affect. SKIN: Warm, dry, no rashes. Course - Re-evaluation Re-evalutation: 11/17/18 18:55 An IV drip of insulin was started at 2 units per hour after giving the patient a bolus of 5 units of regular insulin. Spoke with Dr. Vo, hospitalist online content editor tonight, and patient will be admitted to ICU. - Vital Signs Vital signs: Temp Pulse Resp BP Pulse Ox 98.1 F 113 H 131/68 H 100 11/17/18 19:11 11/17/18 17:18 11/17/18 17:18 11/17/18 17:18 - Laboratory Result Diagrams: 11/17/18 17:47 11/17/18 17:47 Laboratory results interpreted by me: 11/17/18 11/17/18 11/17/18 17:47 17:47 17:47 WBC 23.3 H Hct 47.4 H MCV 107 H MCHC 30.0 L RDW 16.5 H Seg Neuts % (Manual) 79 H Band Neutrophils % 2 L Abs Neuts (Manual) 18.9 H VBG pH 7.03 L* VBG pCO2 18.3 L* VBG HCO3 4.7 L Potassium 5.7 H Carbon Dioxide < 5 L* BUN 21 H Creatinine 1.26 H Est GFR ( Amer) 59 L Est GFR (Non-Af Amer) 49 L Glucose 940 H* Direct Bilirubin 0.5 H AST 38 H Lipase 18.3 L Urine Glucose (UA) Urine Ketones Urine Blood Ur Leukocyte Esterase 11/17/18 18:04 WBC Hct MCV MCHC RDW Seg Neuts % (Manual) Band Neutrophils % Abs Neuts (Manual) VBG pH VBG pCO2 VBG HCO3 Potassium Carbon Dioxide BUN Creatinine Est GFR ( Amer) Est GFR (Non-Af Amer) Glucose Direct Bilirubin AST Lipase Urine Glucose (UA) >=500 H Urine Ketones 80 H Urine Blood SMALL H Ur Leukocyte Esterase SMALL H Critical Care Note - Critical Care Note Total time excluding time spent on procedures (mins): 30 Discharge - Discharge Clinical Impression: Diabetic ketoacidosis, Vomiting, IDDM (insulin dependent diabetes mellitus) Condition: Serious Disposition: ADMITTED INPATIENT Admitting Provider: Hospitalist Unit Admitted: ICU
[2018-11-17 18:45] LABS: VENOUS BLOOD PCO2 18.3 mmHg (35-63); VENOUS BLOOD PH 7.03 (7.30-7.42)
[2018-11-17] MEDS ORDERED: SODIUM BICARBONATE 8.4% INJ 50 MEQ/50 ML DISP.SYRIN IV ONE (18:45)
[2018-11-17 18:46] LABS: ABSOLUTE LYMPHOCYTES# (MANUAL) 3.7 10^3/uL (0.5-4.7); ABSOLUTE MONOCYTES # (MANUAL) 0.7 10^3/uL (0.1-1.4); ABSOLUTE NEUTROPHILS# (MANUAL) 18.9 10^3/uL (1.7-8.2); BAND NEUTROPHILS % (MANUAL) 2 % (3-5); BASOPHILS % (MANUAL) 0 % (0-2); EOSINOPHILS % (MANUAL) 0 % (0-6); LYMPHOCYTES % (MANUAL) 16 % (13-45); MONOCYTES % (MANUAL) 3 % (3-13); SEGMENTED NEUTROPHILS % (MAN) 79 % (42-78); TOTAL CELLS COUNTED 100; TOXIC GRANULATION 1+; TOXIC VACUOLATION PRESENT
[2018-11-17 18:47] LABS: ANISOCYTOSIS 1+; HYPOCHROMASIA SLIGHT; PLATELET CLUMPS PRESENT
[2018-11-17] MEDS ORDERED: ONDANSETRON HCL INJ/PF 4 MG/2 ML SDV IV PRN (19:15)
[2018-11-17] MEDS ORDERED: IPRATROPIUM/ALBUTEROL 0.5-2.5 MG/3 ML AMPUL NEB PRN (19:15)
[2018-11-17] MEDS ORDERED: NORMAL SALINE 1000 ML 1,000 ML IV SCH (19:15)
[2018-11-17] MEDS ORDERED: IPRATROPIUM/ALBUTEROL 0.5-2.5 MG/3 ML AMPUL NEB ONE (19:15)
[2018-11-17] MEDS ORDERED: MAGNESIUM HYDROXIDE SUSP 30 ML UDCUP PO PRN (19:15)
[2018-11-17] MEDS ORDERED: ACETAMINOPHEN 325 MG TABLET PO PRN (19:15)
[2018-11-17] MEDS ORDERED: MAG HYDROX/AL HYDROX/SIMETH SUSP 30 ML UDCUP PO PRN (19:15)
[2018-11-17] MEDS ORDERED: ASPIRIN PO PRN (19:21)
[2018-11-17] MEDS ORDERED: CAFFEINE PO PRN (19:21)
[2018-11-17] MEDS ORDERED: [UNRECOGNIZED DRUG - OTHER] PO PRN (19:21)
[2018-11-17] MEDS ORDERED: ACETAMINOPHEN PO PRN (19:21)
[2018-11-17] MEDS ORDERED: BUTALB/ACETAMINOPHEN/CAFFEINE 1 TAB EACH PO PRN (19:30)
[2018-11-17] MEDS: NORMAL SALINE 100 ML with INSULIN REGULAR, HUMAN 100 UNIT IV PRN ×2 (19:33)
[2018-11-17 20:19] LABS: BLOOD UREA NITROGEN 22 mg/dL (7-20); CALCIUM 8.7 mg/dL (8.4-10.2)
[2018-11-17 20:21] LABS: URINE AMPHETAMINES SCREEN UNCONFIRMED POSITIVE; URINE BARBITURATES SCREEN NEGATIVE; URINE BENZODIAZEPINES SCREEN NEGATIVE; URINE COCAINE SCREEN NEGATIVE; URINE MARIJUANA (THC) SCREEN NEGATIVE; URINE METHADONE SCREEN NEGATIVE; URINE PHENCYCLIDINE SCREEN NEGATIVE
[2018-11-17 20:58] LABS: POTASSIUM 5.4 mmol/L (3.6-5.0)
[2018-11-17 21:01] LABS: CARBON DIOXIDE 5 mmol/L (22-30); GLUCOSE 697 mg/dL (75-110)
[2018-11-17 21:02] LABS: ANION GAP 37 (5-19); CHLORIDE 109 mmol/L (98-107); SODIUM 150.7 mmol/L (137-145)
--- NOTE | 2018-11-17 22:11 | EKG REPORT ---
SEVERITY:- BORDERLINE ECG - SINUS TACHYCARDIA BORDERLINE PROLONGED QT INTERVAL : Confirmed by: June Grimm MD 17-Nov-2018 22:10:43
[2018-11-17] MEDS: HEPARIN SOD (PORCINE) 5,000 UNIT/ML 1 ML SYRINGE SUBCUT SCH (22:35)
[2018-11-17] MEDS ORDERED: POTASSI CL 20 MEQ/D5-1/2NS 1L 1,000 ML IV PRN (23:06)
[2018-11-17 23:46] LABS: ANION GAP 19 (5-19); CALCIUM 8.6 mg/dL (8.4-10.2)
[2018-11-18 00:09] LABS: CHLORIDE 115 mmol/L (98-107); POTASSIUM 3.9 mmol/L (3.6-5.0)
[2018-11-18 00:10] LABS: BLOOD UREA NITROGEN 20 mg/dL (7-20); GLUCOSE 276 mg/dL (75-110)
[2018-11-18 00:17] LABS: CARBON DIOXIDE 17 mmol/L (22-30)
[2018-11-18] MEDS: NORMAL SALINE 100 ML with INSULIN REGULAR, HUMAN 100 UNIT IV PRN ×2 (03:50)
[2018-11-18 04:16] LABS: ABSOLUTE LYMPHOCYTES (AUTO) 2.6 10^3/uL (0.5-4.7); ABSOLUTE MONOCYTES (AUTO) 1.3 10^3/uL (0.1-1.4); ABSOLUTE NEUT (AUTO) 13.4 10^3/uL (1.7-8.2); BASOPHILS % (AUTO) 0.1 % (0-2); HEMATOCRIT 33.4 % (36.0-47.0); LYMPHOCYTES % (AUTO) 14.9 % (13-45); MEAN CORPUSCULAR HEMOGLOBIN 32.6 pg (27.0-33.4); MONOCYTES % (AUTO) 7.4 % (3-13); PLATELET COUNT 215 10^3/uL (150-450); RED BLOOD COUNT 3.59 10^6/uL (3.72-5.28); RED CELL DISTRIBUTION WIDTH 14.2 % (11.5-14.0); SEGMENTED NEUTROPHILS % (AUTO) 77.6 % (42-78); TOTAL CELLS COUNTED % (AUTO) 100 %; WHITE BLOOD COUNT 17.3 10^3/uL (4.0-10.5)
[2018-11-18 04:20] LABS: HEMOGLOBIN 11.7 g/dL (12.0-15.5); MEAN CORPUSCULAR VOLUME 93 fl (80-97)
[2018-11-18 04:28] LABS: BLOOD UREA NITROGEN 19 mg/dL (7-20); CALCIUM 8.2 mg/dL (8.4-10.2); CHLORIDE 119 mmol/L (98-107); GLUCOSE 138 mg/dL (75-110); POTASSIUM 3.8 mmol/L (3.6-5.0); SODIUM 150.5 mmol/L (137-145)
[2018-11-18 04:40] LABS: ANION GAP 6 (5-19)
[2018-11-18 04:41] LABS: CARBON DIOXIDE 26 mmol/L (22-30)
[2018-11-18] MEDS ORDERED: DEXTROSE 40% GEL 15 GM TUBE PO PRN ×3 (05:04→12:47)
[2018-11-18] MEDS ORDERED: GLUCAGON,HUMAN RECOMB 1 MG INJ IM PRN (05:04)
[2018-11-18] MEDS ORDERED: DEXTROSE 50%-WATER 25 GM/50 ML DISP.SYRIN IV PRN ×2 (05:04)
--- NOTE | 2018-11-18 05:39 | PDOC H&P ---
History of Present Illness Admission Date/PCP: 11/17/18 19:25 Patient complains of: Nausea vomiting and hyperglycemia History of Present Illness: CHRISTINA DOUGLAS is a 33 year old female with a past medical history of type 1 diabetes and chronic hyperglycemia. Patient presents obtunded and history is obtained by partner at bedside who reports several days of blood sugars in the mid 400s. She sometimes takes insulin once a day and is complained of polyuria polydipsia developing abdominal pain nausea and vomiting. In the emergency room she is found to have severe metabolic acidosis started on IV insulin and bicarb then referred to the hospitalist for admission. Past Medical History Neurological Medical History: Reports: Migraine Endocrine Medical History: Reports: Diabetes Mellitus Type 1 Past Surgical History Past Surgical History: Reports: None Social History Information Source: Friend, Emergency Med Personnel Lives with: Spouse/Significant other Smoking Status: Unknown if Ever Smoked Frequency of Alcohol Use: Occasional Hx Recreational Drug Use: No Hx Prescription Drug Abuse: No - Advance Directive Resuscitation Status: Full Code Family History Family History: DM Parental Family History Reviewed: No - Unobtainable Children Family History Reviewed: No - Unobtainable Sibling(s) Family History Reviewed.: No - Unobtainable Medication/Allergy Allergies/Adverse Reactions: cefaclor [From Ceclor] Allergy (Verified 11/17/18 17:12) Review of Systems ROS unobtainable: Due to mental status Physical Exam Vital Signs: Temp Pulse Resp BP Pulse Ox 98.0 F 70 12 110/71 100 11/18/18 04:00 11/18/18 04:00 11/18/18 04:00 11/18/18 04:00 11/18/18 04:00 Intake & Output 11/16/18 11/17/18 11/18/18 11:59 11:59 11:59 Intake Total 1827 Output Total 300 Balance 1527 Weight 49.6 kg General appearance: PRESENT: disheveled, severe distress, thin. ABSENT: cooperative Head exam: PRESENT: atraumatic, normocephalic Eye exam: PRESENT: conjunctiva pink, EOMI, PERRLA. ABSENT: scleral icterus Ear exam: PRESENT: normal external ear exam Mouth exam: PRESENT: dry mucosa, neck supple, tongue midline Neck exam: ABSENT: carotid bruit, JVD, lymphadenopathy, thyromegaly Respiratory exam: PRESENT: accessory muscle use, clear to auscultation claus, tachypnea. ABSENT: rales, rhonchi, wheezes Cardiovascular exam: PRESENT: +S1, +S2, tachycardia. ABSENT: systolic murmur Pulses: PRESENT: normal dorsalis pedis pul Vascular exam: PRESENT: normal capillary refill GI/Abdominal exam: PRESENT: normal bowel sounds, soft. ABSENT: distended, guarding, mass, organolmegaly, rebound, tenderness Rectal exam: PRESENT: deferred Extremities exam: PRESENT: full ROM. ABSENT: calf tenderness, clubbing, pedal edema Neurological exam: PRESENT: altered, CN II-XII grossly intact. ABSENT: awake, oriented to person, oriented to place Psychiatric exam: PRESENT: flat affect Skin exam: PRESENT: dry, intact, warm. ABSENT: cyanosis, rash Results Laboratory Results: 11/18/18 03:34 11/18/18 03:34 11/17/18 11/17/18 11/17/18 17:47 17:47 17:47 WBC 23.3 H RBC 4.41 Hgb 14.2 Hct 47.4 H MCV 107 H MCH 32.2 MCHC 30.0 L RDW 16.5 H Plt Count 354 Seg Neutrophils % Not Reportable Lymphocytes % Not Reportable Monocytes % Not Reportable Eosinophils % Not Reportable Basophils % Not Reportable Absolute Neutrophils Not Reportable Absolute Lymphocytes Not Reportable Absolute Monocytes Not Reportable Absolute Eosinophils Not Reportable Absolute Basophils Not Reportable VBG pH 7.03 L* VBG pCO2 18.3 L* VBG HCO3 4.7 L VBG Base Excess -24.4 Sodium 141.2 Potassium 5.7 H Chloride 98 Carbon Dioxide < 5 L* Anion Gap Not Reportable BUN 21 H Creatinine 1.26 H Est GFR ( Amer) 59 L Est GFR (Non-Af Amer) 49 L Glucose 940 H* Calcium 9.0 Total Bilirubin 0.5 AST 38 H ALT 24 Alkaline Phosphatase 90 Total Protein 7.1 Albumin 4.8 Lipase 18.3 L Urine Color Urine Appearance Urine pH Ur Specific [place] Urine Protein Urine Glucose (UA) Urine Ketones Urine Blood Urine Nitrite Ur Leukocyte Esterase Urine WBC (Auto) Urine RBC (Auto) 11/17/18 11/17/18 11/17/18 18:04 19:50 23:23 WBC RBC Hgb Hct MCV MCH MCHC RDW Plt Count Seg Neutrophils % Lymphocytes % Monocytes % Eosinophils % Basophils % Absolute Neutrophils Absolute Lymphocytes Absolute Monocytes Absolute Eosinophils Absolute Basophils VBG pH VBG pCO2 VBG HCO3 VBG Base Excess Sodium 150.7 H 151.0 H Potassium 5.4 H 3.9 D Chloride 109 H 115 H Carbon Dioxide 5 L* 17 L D Anion Gap 37 H 19 BUN 22 H 20 Creatinine 1.17 0.86 Est GFR ( Amer) > 60 > 60 Est GFR (Non-Af Amer) 53 L > 60 Glucose 697 H* 276 H Calcium 8.7 8.6 Total Bilirubin AST ALT Alkaline Phosphatase Total Protein Albumin Lipase Urine Color STRAW Urine Appearance SLIGHTLY-CLOUDY Urine pH 5.0 Ur Specific [place] 1.022 Urine Protein NEGATIVE Urine Glucose (UA) >=500 H Urine Ketones 80 H Urine Blood SMALL H Urine Nitrite NEGATIVE Ur Leukocyte Esterase SMALL H Urine WBC (Auto) 3 Urine RBC (Auto) 1 11/18/18 11/18/18 03:34 03:34 WBC 17.3 H RBC 3.59 L Hgb 11.7 L D Hct 33.4 L MCV 93 D MCH 32.6 MCHC 35.0 RDW 14.2 H Plt Count 215 Seg Neutrophils % 77.6 Lymphocytes % 14.9 Monocytes % 7.4 Eosinophils % 0.0 Basophils % 0.1 Absolute Neutrophils 13.4 H Absolute Lymphocytes 2.6 Absolute Monocytes 1.3 Absolute Eosinophils 0.0 Absolute Basophils 0.0 VBG pH VBG pCO2 VBG HCO3 VBG Base Excess Sodium 150.5 H Potassium 3.8 Chloride 119 H Carbon Dioxide 26 Anion Gap 6 BUN 19 Creatinine 0.66 Est GFR ( Amer) > 60 Est GFR (Non-Af Amer) > 60 Glucose 138 H Calcium 8.2 L Total Bilirubin AST ALT Alkaline Phosphatase Total Protein Albumin Lipase Urine Color Urine Appearance Urine pH Ur Specific [place] Urine Protein Urine Glucose (UA) Urine Ketones Urine Blood Urine Nitrite Ur Leukocyte Esterase Urine WBC (Auto) Urine RBC (Auto) Assessment & Plan - Diagnosis (1) Diabetic ketoacidosis Is this a current diagnosis for this admission?: Yes Plan: Diabetic ketoacidosis patient has had some degree of polyuria polydipsia with nausea and uncontrolled hyperglycemia with supporting labs. Patient will receive IV fluids IV insulin serial chemistries every 6 hours for evaluation for electrolyte repletion. Continued evaluation for underlying cause if not found Patient will require diabetic education and consideration of mental health evalu ation. (2) Hyperkalemia Is this a current diagnosis for this admission?: Yes Plan: Insulin with follow-up chemistry every 4 hours (3) Vomiting Is this a current diagnosis for this admission?: Yes Plan: Correction of #1 and symptomatic management (4) Encephalopathy acute Is this a current diagnosis for this admission?: Yes Plan: Secondary to #1 with severe metabolic acidosis. Protecting airway, supportive care ICU admission - Time Time Spent: 50 to 70 Minutes - Inpatient Certification Medical Necessity: Need Close Monitoring Due to Risk of Patient Decompensation
[2018-11-18] MEDS: HEPARIN SOD (PORCINE) 5,000 UNIT/ML 1 ML SYRINGE SUBCUT SCH ×3 (05:59→21:03)
[2018-11-18] MEDS ORDERED: HUM INSULIN NPH/REG INSULIN HM 100 UNIT/1 ML 3 ML SUBCUT SCH (08:00)
[2018-11-18 08:32] LABS: ANION GAP 16 (5-19); BLOOD UREA NITROGEN 19 mg/dL (7-20); CALCIUM 8.5 mg/dL (8.4-10.2); CARBON DIOXIDE 17 mmol/L (22-30); CHLORIDE 115 mmol/L (98-107); GLUCOSE 368 mg/dL (75-110); POTASSIUM 4.6 mmol/L (3.6-5.0); SODIUM 147.5 mmol/L (137-145)
[2018-11-18] MEDS: INSULIN LISPRO 100 UNIT/ML 3 ML VIAL SUBCUT SCH ×4 (09:40→17:28)
[2018-11-18] MEDS ORDERED: NORMAL SALINE 1000 ML 1,000 ML IV PRN (10:28)
[2018-11-18 12:26] LABS: BLOOD UREA NITROGEN 18 mg/dL (7-20); CALCIUM 8.7 mg/dL (8.4-10.2); POTASSIUM 4.5 mmol/L (3.6-5.0)
[2018-11-18 12:32] LABS: CARBON DIOXIDE 11 mmol/L (22-30); CHLORIDE 112 mmol/L (98-107); SODIUM 145.4 mmol/L (137-145)
[2018-11-18 12:37] LABS: ANION GAP 22 (5-19)
[2018-11-18 12:39] LABS: GLUCOSE 463 mg/dL (75-110)
[2018-11-18] MEDS ORDERED: NORMAL SALINE 100 ML with INSULIN REGULAR, HUMAN 100 UNIT IV PRN ×2 (12:47)
[2018-11-18] MEDS ORDERED: POTASSI CL 20 MEQ/1/2NS 1L 20 MEQ/1,000 ML RTUINJ IV PRN (12:50)
[2018-11-18 15:34] LABS: BLOOD UREA NITROGEN 17 mg/dL (7-20); CALCIUM 9.1 mg/dL (8.4-10.2); CHLORIDE 116 mmol/L (98-107); GLUCOSE 195 mg/dL (75-110); POTASSIUM 4.1 mmol/L (3.6-5.0); SODIUM 147.5 mmol/L (137-145)
[2018-11-18 15:47] LABS: ANION GAP 12 (5-19); CARBON DIOXIDE 20 mmol/L (22-30)
--- NOTE | 2018-11-18 17:29 | PDOC PROGRESS REPORT ---
Subjective Progress Note for:: 11/18/18 Subjective:: Patient was seen on rounds this morning. She was taken off of the insulin drip overnight. She was really sick this morning and vomited apparently urinated on herself in the bed. After they got her cleaned up and gave her something for nausea she was sleepy and slept most of the morning. Reason For Visit: DKA HYPERKALEMIA Physical Exam Vital Signs: Temp Pulse Resp BP Pulse Ox 99.6 F 70 17 106/73 98 11/18/18 16:00 11/18/18 16:00 11/18/18 16:00 11/18/18 16:00 11/18/18 16:00 Intake & Output 11/17/18 11/18/18 11/19/18 06:59 06:59 06:59 Intake Total 1827 1134 Output Total 300 1400 Balance 1527 -266 Weight 49.6 kg General appearance: PRESENT: no acute distress, cooperative, disheveled Respiratory exam: PRESENT: clear to auscultation claus, symmetrical, unlabored. ABSENT: accessory muscle use, prolonged expiratory phas, rales, rhonchi, tachypnea, wheezes Cardiovascular exam: PRESENT: RRR, +S1, +S2 Pulses: PRESENT: normal carotid pulses Vascular exam: PRESENT: normal capillary refill GI/Abdominal exam: PRESENT: diminished bowel sounds, soft. ABSENT: distended, guarding, rebound, tenderness Extremities exam: ABSENT: clubbing, pedal edema Musculoskeletal exam: PRESENT: normal inspection. ABSENT: deformity Neurological exam: ABSENT: awake - Did not want to wake up and interact with me Skin exam: PRESENT: dry, warm Results Laboratory Results: 11/18/18 03:34 11/18/18 15:08 11/17/18 11/17/18 11/17/18 17:47 17:47 17:47 WBC 23.3 H RBC 4.41 Hgb 14.2 Hct 47.4 H MCV 107 H MCH 32.2 MCHC 30.0 L RDW 16.5 H Plt Count 354 Seg Neutrophils % Not Reportable Lymphocytes % Not Reportable Monocytes % Not Reportable Eosinophils % Not Reportable Basophils % Not Reportable Absolute Neutrophils Not Reportable Absolute Lymphocytes Not Reportable Absolute Monocytes Not Reportable Absolute Eosinophils Not Reportable Absolute Basophils Not Reportable VBG pH 7.03 L* VBG pCO2 18.3 L* VBG HCO3 4.7 L VBG Base Excess -24.4 Sodium 141.2 Potassium 5.7 H Chloride 98 Carbon Dioxide < 5 L* Anion Gap Not Reportable BUN 21 H Creatinine 1.26 H Est GFR ( Amer) 59 L Est GFR (Non-Af Amer) 49 L Glucose 940 H* Calcium 9.0 Total Bilirubin 0.5 AST 38 H ALT 24 Alkaline Phosphatase 90 Total Protein 7.1 Albumin 4.8 Lipase 18.3 L Urine Color Urine Appearance Urine pH Ur Specific [place] Urine Protein Urine Glucose (UA) Urine Ketones Urine Blood Urine Nitrite Ur Leukocyte Esterase Urine WBC (Auto) Urine RBC (Auto) 11/17/18 11/17/18 11/17/18 18:04 19:50 23:23 WBC RBC Hgb Hct MCV MCH MCHC RDW Plt Count Seg Neutrophils % Lymphocytes % Monocytes % Eosinophils % Basophils % Absolute Neutrophils Absolute Lymphocytes Absolute Monocytes Absolute Eosinophils Absolute Basophils VBG pH VBG pCO2 VBG HCO3 VBG Base Excess Sodium 150.7 H 151.0 H Potassium 5.4 H 3.9 D Chloride 109 H 115 H Carbon Dioxide 5 L* 17 L D Anion Gap 37 H 19 BUN 22 H 20 Creatinine 1.17 0.86 Est GFR ( Amer) > 60 > 60 Est GFR (Non-Af Amer) 53 L > 60 Glucose 697 H* 276 H Calcium 8.7 8.6 Total Bilirubin AST ALT Alkaline Phosphatase Total Protein Albumin Lipase Urine Color STRAW Urine Appearance SLIGHTLY-CLOUDY Urine pH 5.0 Ur Specific [place] 1.022 Urine Protein NEGATIVE Urine Glucose (UA) >=500 H Urine Ketones 80 H Urine Blood SMALL H Urine Nitrite NEGATIVE Ur Leukocyte Esterase SMALL H Urine WBC (Auto) 3 Urine RBC (Auto) 1 11/18/18 11/18/18 11/18/18 03:34 03:34 07:58 WBC 17.3 H RBC 3.59 L Hgb 11.7 L D Hct 33.4 L MCV 93 D MCH 32.6 MCHC 35.0 RDW 14.2 H Plt Count 215 Seg Neutrophils % 77.6 Lymphocytes % 14.9 Monocytes % 7.4 Eosinophils % 0.0 Basophils % 0.1 Absolute Neutrophils 13.4 H Absolute Lymphocytes 2.6 Absolute Monocytes 1.3 Absolute Eosinophils 0.0 Absolute Basophils 0.0 VBG pH VBG pCO2 VBG HCO3 VBG Base Excess Sodium 150.5 H 147.5 H Potassium 3.8 4.6 Chloride 119 H 115 H Carbon Dioxide 26 17 L Anion Gap 6 16 BUN 19 19 Creatinine 0.66 0.77 Est GFR ( Amer) > 60 > 60 Est GFR (Non-Af Amer) > 60 > 60 Glucose 138 H 368 H Calcium 8.2 L 8.5 Total Bilirubin AST ALT Alkaline Phosphatase Total Protein Albumin Lipase Urine Color Urine Appearance Urine pH Ur Specific [place] Urine Protein Urine Glucose (UA) Urine Ketones Urine Blood Urine Nitrite Ur Leukocyte Esterase Urine WBC (Auto) Urine RBC (Auto) 11/18/18 11/18/18 11:58 15:08 WBC RBC Hgb Hct MCV MCH MCHC RDW Plt Count Seg Neutrophils % Lymphocytes % Monocytes % Eosinophils % Basophils % Absolute Neutrophils Absolute Lymphocytes Absolute Monocytes Absolute Eosinophils Absolute Basophils VBG pH VBG pCO2 VBG HCO3 VBG Base Excess Sodium 145.4 H 147.5 H Potassium 4.5 4.1 Chloride 112 H 116 H Carbon Dioxide 11 L 20 L Anion Gap 22 H 12 BUN 18 17 Creatinine 0.87 0.67 Est GFR ( Amer) > 60 > 60 Est GFR (Non-Af Amer) > 60 > 60 Glucose 463 H* 195 H Calcium 8.7 9.1 Total Bilirubin AST ALT Alkaline Phosphatase Total Protein Albumin Lipase Urine Color Urine Appearance Urine pH Ur Specific [place] Urine Protein Urine Glucose (UA) Urine Ketones Urine Blood Urine Nitrite Ur Leukocyte Esterase Urine WBC (Auto) Urine RBC (Auto) Assessment & Plan - Diagnosis (1) Diabetic ketoacidosis Qualifiers: Diabetes mellitus type: type 1 Diabetes mellitus complication detail: with coma Qualified Code(s): E10.11 - Type 1 diabetes mellitus with ketoacidosis with coma Is this a current diagnosis for this admission?: Yes Plan: After she was taken off the drip, she did not eat and was very nauseated, and despite this her blood sugar started to go back up. Her anion gap increased and her bicarbonate dropped. Because of this, I put her back on the insulin drip. Her last metabolic panel showed that her CO2 had come up and that her anion gap had closed and her blood sugars come down, but because she started to look like she was swinging back into DKA after the drip was stopped, I am going to leave her on it overnight and will probably look to take her off the drip in the morning. - Time Time Spent with patient: 25-34 minutes
[2018-11-18] MEDS: POTASSI CL 20 MEQ/D5-1/2NS 1L 1,000 ML IV PRN (18:09)
[2018-11-18 19:47] LABS: ANION GAP 7 (5-19); BLOOD UREA NITROGEN 14 mg/dL (7-20); CALCIUM 8.4 mg/dL (8.4-10.2); CARBON DIOXIDE 22 mmol/L (22-30); CHLORIDE 111 mmol/L (98-107); GLUCOSE 167 mg/dL (75-110); POTASSIUM 3.8 mmol/L (3.6-5.0); SODIUM 140.4 mmol/L (137-145)
[2018-11-19 00:12] LABS: ANION GAP 8 (5-19); BLOOD UREA NITROGEN 13 mg/dL (7-20); CALCIUM 8.2 mg/dL (8.4-10.2); CARBON DIOXIDE 23 mmol/L (22-30); CHLORIDE 108 mmol/L (98-107); GLUCOSE 214 mg/dL (75-110); POTASSIUM 3.5 mmol/L (3.6-5.0); SODIUM 138.8 mmol/L (137-145)
[2018-11-19] MEDS ORDERED: POTASSIUM CHLORIDE 10 MEQ CAPSULE.ER PO ONE (01:00)
[2018-11-19] MEDS: POTASSI CL 20 MEQ/D5-1/2NS 1L 1,000 ML IV PRN (01:03)
[2018-11-19 04:07] LABS: ANION GAP 8 (5-19); BLOOD UREA NITROGEN 11 mg/dL (7-20); CALCIUM 8.4 mg/dL (8.4-10.2); CARBON DIOXIDE 22 mmol/L (22-30); CHLORIDE 109 mmol/L (98-107); GLUCOSE 230 mg/dL (75-110); SODIUM 138.7 mmol/L (137-145)
[2018-11-19] MEDS: HEPARIN SOD (PORCINE) 5,000 UNIT/ML 1 ML SYRINGE SUBCUT SCH ×3 (06:04→21:46)
[2018-11-19 08:34] LABS: ANION GAP 8 (5-19); BLOOD UREA NITROGEN 10 mg/dL (7-20); CALCIUM 8.5 mg/dL (8.4-10.2); CARBON DIOXIDE 22 mmol/L (22-30); CHLORIDE 109 mmol/L (98-107); GLUCOSE 195 mg/dL (75-110); POTASSIUM 4.5 mmol/L (3.6-5.0); SODIUM 138.7 mmol/L (137-145)
[2018-11-19] MEDS ORDERED: HUM INSULIN NPH/REG INSULIN HM 100 UNIT/1 ML 3 ML SUBCUT SCH (12:00)
[2018-11-19 12:05] LABS: ANION GAP 8 (5-19); BLOOD UREA NITROGEN 9 mg/dL (7-20); CALCIUM 8.8 mg/dL (8.4-10.2); CARBON DIOXIDE 23 mmol/L (22-30); CHLORIDE 108 mmol/L (98-107); GLUCOSE 181 mg/dL (75-110); POTASSIUM 4.6 mmol/L (3.6-5.0); SODIUM 138.8 mmol/L (137-145)
[2018-11-19 15:52] LABS: ANION GAP 9 (5-19); BLOOD UREA NITROGEN 10 mg/dL (7-20); CALCIUM 8.7 mg/dL (8.4-10.2); CARBON DIOXIDE 22 mmol/L (22-30); CHLORIDE 108 mmol/L (98-107); GLUCOSE 190 mg/dL (75-110); POTASSIUM 4.8 mmol/L (3.6-5.0); SODIUM 138.8 mmol/L (137-145)
--- NOTE | 2018-11-19 15:59 | PDOC PROGRESS REPORT ---
Subjective Progress Note for:: 11/19/18 Subjective:: No adverse events overnight. We will keep on insulin drip overnight and she is done pretty well. She is more alert and interactive today. She said she had not had any compliance issues with her home insulin. She has been taking sips of liquids without any difficulty. Reason For Visit: DKA HYPERKALEMIA Physical Exam Vital Signs: Temp Pulse Resp BP Pulse Ox 98.3 F 70 13 113/76 95 11/19/18 12:00 11/19/18 12:00 11/19/18 15:27 11/19/18 15:27 11/19/18 15:27 Intake & Output 11/18/18 11/19/18 11/20/18 06:59 06:59 06:59 Intake Total 1827 3654 36 Output Total 300 1400 Balance 1527 2254 36 Weight 49.6 kg 55.4 kg General appearance: PRESENT: no acute distress, cooperative, disheveled Respiratory exam: PRESENT: clear to auscultation claus, symmetrical, unlabored. ABSENT: accessory muscle use, prolonged expiratory phas, rales, rhonchi, tachypnea, wheezes Cardiovascular exam: PRESENT: RRR, +S1, +S2 Pulses: PRESENT: normal carotid pulses Vascular exam: PRESENT: normal capillary refill GI/Abdominal exam: PRESENT: diminished bowel sounds, soft. ABSENT: distended, guarding, rebound, tenderness Extremities exam: ABSENT: clubbing, pedal edema Musculoskeletal exam: PRESENT: normal inspection. ABSENT: deformity Neurological exam: Alert, awake, oriented to person, oriented to place, oriented to time, oriented to situation Skin exam: PRESENT: dry, warm Results Laboratory Results: 11/18/18 03:34 11/18/18 11/18/18 11/19/18 19:23 23:39 03:30 Sodium 140.4 138.8 138.7 Potassium 3.8 3.5 L 4.0 Chloride 111 H 108 H 109 H Carbon Dioxide 22 23 22 Anion Gap 7 8 8 BUN 14 13 11 Creatinine 0.52 0.57 0.55 Est GFR ( Amer) > 60 > 60 > 60 Est GFR (Non-Af Amer) > 60 > 60 > 60 Glucose 167 H 214 H 230 H Calcium 8.4 8.2 L 8.4 11/19/18 11/19/18 07:54 11:23 Sodium 138.7 138.8 Potassium 4.5 4.6 Chloride 109 H 108 H Carbon Dioxide 22 23 Anion Gap 8 8 BUN 10 9 Creatinine 0.51 L 0.55 Est GFR ( Amer) > 60 > 60 Est GFR (Non-Af Amer) > 60 > 60 Glucose 195 H 181 H Calcium 8.5 8.8 11/17/18 18:04 Clean Catch Midstream Urine Culture - Final Escherichia Coli Assessment & Plan - Diagnosis (1) Diabetic ketoacidosis Qualifiers: Diabetes mellitus type: type 1 Diabetes mellitus complication detail: with coma Qualified Code(s): E10.11 - Type 1 diabetes mellitus with ketoacidosis with coma Is this a current diagnosis for this admission?: Yes Plan: We have taken her off of the insulin drip and fluids now. We got her on a consistent carbohydrate diet and on the insulin she takes at home. We will see how well controlled she is. If she does well on this regimen, we can send her home. - Time Time Spent with patient: 25-34 minutes
[2018-11-19] MEDS ORDERED: INSULIN LISPRO 100 UNIT/ML 3 ML VIAL SUBCUT ONE (17:15)
[2018-11-19 19:59] LABS: ANION GAP 8 (5-19); BLOOD UREA NITROGEN 7 mg/dL (7-20); CALCIUM 8.5 mg/dL (8.4-10.2); CARBON DIOXIDE 25 mmol/L (22-30); CHLORIDE 105 mmol/L (98-107); GLUCOSE 175 mg/dL (75-110); SODIUM 137.5 mmol/L (137-145)
[2018-11-19] MEDS: HUM INSULIN NPH/REG INSULIN HM 100 UNIT/1 ML 3 ML SUBCUT SCH (21:42)
[2018-11-19] MEDS: INSULIN LISPRO 100 UNIT/ML 3 ML VIAL SUBCUT SCH (21:45)
[2018-11-19 23:47] LABS: ANION GAP 8 (5-19); BLOOD UREA NITROGEN 9 mg/dL (7-20); CALCIUM 8.4 mg/dL (8.4-10.2); CARBON DIOXIDE 25 mmol/L (22-30); CHLORIDE 105 mmol/L (98-107); GLUCOSE 170 mg/dL (75-110); POTASSIUM 3.4 mmol/L (3.6-5.0); SODIUM 138.3 mmol/L (137-145)
[2018-11-20] MEDS: HEPARIN SOD (PORCINE) 5,000 UNIT/ML 1 ML SYRINGE SUBCUT SCH ×3 (05:27→22:09)
[2018-11-20 06:05] LABS: BLOOD UREA NITROGEN 10 mg/dL (7-20); CALCIUM 8.4 mg/dL (8.4-10.2); CARBON DIOXIDE 30 mmol/L (22-30); CHLORIDE 105 mmol/L (98-107); POTASSIUM 3.4 mmol/L (3.6-5.0); SODIUM 139.4 mmol/L (137-145)
[2018-11-20 06:17] LABS: ANION GAP 5 (5-19); GLUCOSE 48 mg/dL (75-110)
[2018-11-20] MEDS: INSULIN LISPRO 100 UNIT/ML 3 ML VIAL SUBCUT SCH ×4 (08:26→22:08)
[2018-11-20 08:51] LABS: ANION GAP 5 (5-19); BLOOD UREA NITROGEN 9 mg/dL (7-20); CALCIUM 8.1 mg/dL (8.4-10.2); CARBON DIOXIDE 30 mmol/L (22-30); CHLORIDE 102 mmol/L (98-107); GLUCOSE 199 mg/dL (75-110); POTASSIUM 4.3 mmol/L (3.6-5.0)
[2018-11-20] MEDS: HUM INSULIN NPH/REG INSULIN HM 100 UNIT/1 ML 3 ML SUBCUT SCH ×2 (10:28→22:09)
[2018-11-20 12:46] LABS: ANION GAP 10 (5-19); BLOOD UREA NITROGEN 12 mg/dL (7-20); CALCIUM 8.4 mg/dL (8.4-10.2); CARBON DIOXIDE 28 mmol/L (22-30); CHLORIDE 99 mmol/L (98-107); GLUCOSE 318 mg/dL (75-110); SODIUM 136.5 mmol/L (137-145)
[2018-11-20 16:19] LABS: ANION GAP 8 (5-19); BLOOD UREA NITROGEN 11 mg/dL (7-20); CALCIUM 8.4 mg/dL (8.4-10.2); CARBON DIOXIDE 25 mmol/L (22-30); CHLORIDE 103 mmol/L (98-107); GLUCOSE 231 mg/dL (75-110); POTASSIUM 4.3 mmol/L (3.6-5.0); SODIUM 136.3 mmol/L (137-145)
--- NOTE | 2018-11-20 17:59 | PDOC PROGRESS REPORT ---
Subjective Progress Note for:: 11/20/18 Subjective:: No adverse events overnight. No new complaints. We have had her on the Novolin 70/30 20 units twice a day that she was on at home. Given her a consistent carbohydrate diet, and her blood sugars are still elevated. Were having to give her additional coverage via sliding scale. Reason For Visit: DKA HYPERKALEMIA Physical Exam Vital Signs: Temp Pulse Resp BP Pulse Ox 98.4 F 80 16 114/76 100 11/20/18 11:53 11/20/18 11:53 11/20/18 11:53 11/20/18 11:53 11/20/18 11:53 Intake & Output 11/19/18 11/20/18 11/21/18 06:59 06:59 06:59 Intake Total 3654 1356 1954 Output Total 1400 1000 Balance 2254 356 1954 Weight 55.4 kg 54.2 kg General appearance: PRESENT: no acute distress, cooperative, disheveled Respiratory exam: PRESENT: clear to auscultation claus, symmetrical, unlabored. A BSENT: accessory muscle use, prolonged expiratory phase, rales, rhonchi, tachypnea, wheezes Cardiovascular exam: PRESENT: RRR, +S1, +S2 Pulses: PRESENT: normal carotid pulses Vascular exam: PRESENT: normal capillary refill GI/Abdominal exam: PRESENT: diminished bowel sounds, soft. ABSENT: distended, guarding, rebound, tenderness Extremities exam: ABSENT: clubbing, pedal edema Musculoskeletal exam: PRESENT: normal inspection. ABSENT: deformity Neurological exam: Alert, awake, oriented to person, oriented to place, mai ented to time, oriented to situation Skin exam: PRESENT: dry, warm Results Laboratory Results: 11/18/18 03:34 11/20/18 15:35 11/19/18 11/19/18 11/20/18 19:36 23:26 04:13 Sodium 137.5 138.3 139.4 Potassium 4.0 3.4 L 3.4 L Chloride 105 105 105 Carbon Dioxide 25 25 30 Anion Gap 8 8 5 BUN 7 9 10 Creatinine 0.51 L 0.55 0.53 Est GFR ( Amer) > 60 > 60 > 60 Est GFR (Non-Af Amer) > 60 > 60 > 60 Glucose 175 H 170 H 48 L Calcium 8.5 8.4 8.4 11/20/18 11/20/18 11/20/18 08:10 12:05 15:35 Sodium 137.0 136.5 L 136.3 L Potassium 4.3 4.0 4.3 Chloride 102 99 103 Carbon Dioxide 30 28 25 Anion Gap 5 10 8 BUN 9 12 11 Creatinine 0.52 0.56 0.48 L Est GFR ( Amer) > 60 > 60 > 60 Est GFR (Non-Af Amer) > 60 > 60 > 60 Glucose 199 H 318 H 231 H Calcium 8.1 L 8.4 8.4 Assessment & Plan - Diagnosis (1) Diabetic ketoacidosis Qualifiers: Diabetes mellitus type: type 1 Diabetes mellitus complication detail: with coma Qualified Code(s): E10.11 - Type 1 diabetes mellitus with ketoacidosis with coma Is this a current diagnosis for this admission?: Yes Plan: We have been giving her her 70/30 and she is been eating a consistent carbohydrate diet and her blood sugars are still uncontrolled. She needs supplemental sliding scale insulin to control her blood sugars. She is unable to afford this at home at this time, and her Medicaid application is pending. Our field case manager unable to get the supplemental assistance medication for her today, and they will work on that tomorrow. Once that is obtained, she can be discharged home. - Time Time Spent with patient: 25-34 minutes
[2018-11-20 20:14] LABS: ANION GAP 5 (5-19); BLOOD UREA NITROGEN 12 mg/dL (7-20); CALCIUM 8.5 mg/dL (8.4-10.2); CARBON DIOXIDE 32 mmol/L (22-30); CHLORIDE 100 mmol/L (98-107); GLUCOSE 192 mg/dL (75-110); POTASSIUM 4.2 mmol/L (3.6-5.0)
[2018-11-21 00:28] LABS: ANION GAP 10 (5-19); BLOOD UREA NITROGEN 15 mg/dL (7-20); CALCIUM 8.8 mg/dL (8.4-10.2); CARBON DIOXIDE 28 mmol/L (22-30); CHLORIDE 99 mmol/L (98-107); GLUCOSE 242 mg/dL (75-110); POTASSIUM 3.7 mmol/L (3.6-5.0); SODIUM 137.1 mmol/L (137-145)
[2018-11-21] MEDS: HEPARIN SOD (PORCINE) 5,000 UNIT/ML 1 ML SYRINGE SUBCUT SCH ×2 (05:06→13:06)
[2018-11-21 06:12] LABS: BLOOD UREA NITROGEN 14 mg/dL (7-20); CALCIUM 8.6 mg/dL (8.4-10.2); POTASSIUM 3.5 mmol/L (3.6-5.0)
[2018-11-21 06:13] LABS: ANION GAP 6 (5-19); CARBON DIOXIDE 30 mmol/L (22-30); CHLORIDE 104 mmol/L (98-107); SODIUM 140.1 mmol/L (137-145)
[2018-11-21 06:15] LABS: GLUCOSE 53 mg/dL (75-110)
[2018-11-21 08:18] LABS: ANION GAP 6 (5-19); BLOOD UREA NITROGEN 12 mg/dL (7-20); CALCIUM 8.2 mg/dL (8.4-10.2); CARBON DIOXIDE 29 mmol/L (22-30); CHLORIDE 101 mmol/L (98-107); GLUCOSE 314 mg/dL (75-110); SODIUM 135.8 mmol/L (137-145)
[2018-11-21 08:25] LABS: POTASSIUM 4.5 mmol/L (3.6-5.0)
[2018-11-21] MEDS: HUM INSULIN NPH/REG INSULIN HM 100 UNIT/1 ML 3 ML SUBCUT SCH (09:01)
[2018-11-21] MEDS: INSULIN LISPRO 100 UNIT/ML 3 ML VIAL SUBCUT SCH ×2 (09:01→12:14)
[2018-11-21 12:10] VITALS: BP 94/53
[2018-11-21 12:11] LABS: ANION GAP 9 (5-19); BLOOD UREA NITROGEN 12 mg/dL (7-20); CALCIUM 9.1 mg/dL (8.4-10.2); CARBON DIOXIDE 27 mmol/L (22-30); CHLORIDE 101 mmol/L (98-107); GLUCOSE 227 mg/dL (75-110); POTASSIUM 4.3 mmol/L (3.6-5.0); SODIUM 137.1 mmol/L (137-145)
[2018-11-21] MEDS ORDERED: DEXTROSE 40% GEL 15 GM TUBE PO PRN ×2 (15:11)
[2018-11-21] MEDS ORDERED: GLUCAGON,HUMAN RECOMB 1 MG INJ IM PRN (15:11)
[2018-11-21] MEDS ORDERED: DEXTROSE 50%-WATER 25 GM/50 ML DISP.SYRIN IV PRN ×2 (15:11)
[2018-11-21] MEDS ORDERED: NORMAL SALINE 1000 ML 1,000 ML IV PRN (15:12)
--- NOTE | 2018-11-21 15:17 | PDOC PROGRESS REPORT ---
Subjective Progress Note for:: 11/21/18 Subjective:: [id number] female admitted for DKA and hyperkalemia blood sugars are fluctuating earlier this morning blood sugar is around 53 and the latest blood sugar was 227. Patient is also hypotensive blood pressure is 94/53 as per the patient her blood pressures always runs low systolic around the 90s. Patient is asymptomatic. WBC 17,300 urine culture shows E. coli. Requested her to stay another day for antibiotic therapy and IV fluids and better adjustment of the blood sugars she agreed to stay another day. Reason For Visit: DKA HYPERKALEMIA Physical Exam Vital Signs: Temp Pulse Resp BP Pulse Ox 99.0 F 98 18 94/53 L 99 11/21/18 10:34 11/21/18 14:00 11/21/18 10:34 11/21/18 10:34 11/21/18 10:34 Intake & Output 11/20/18 11/21/18 11/22/18 06:59 06:59 06:59 Intake Total 1356 3179 Output Total 1000 600 Balance 356 2579 Weight 54.2 kg 54.5 kg General appearance: PRESENT: no acute distress Head exam: PRESENT: atraumatic Eye exam: PRESENT: PERRLA Mouth exam: PRESENT: dry mucosa Neck exam: ABSENT: carotid bruit, JVD, lymphadenopathy, thyromegaly Respiratory exam: PRESENT: clear to auscultation claus. ABSENT: rales, rhonchi, wheezes Cardiovascular exam: PRESENT: RRR. ABSENT: diastolic murmur, rubs, systolic murmur GI/Abdominal exam: PRESENT: normal bowel sounds, soft. ABSENT: distended, guarding, mass, organolmegaly, rebound, tenderness Extremities exam: PRESENT: full ROM. ABSENT: calf tenderness, clubbing, pedal edema Neurological exam: PRESENT: alert, awake, oriented to person, oriented to place, oriented to time, oriented to situation, CN II-XII grossly intact. ABSENT: motor sensory deficit Psychiatric exam: PRESENT: appropriate affect, normal mood. ABSENT: homicidal ideation, suicidal ideation Results Laboratory Results: 11/18/18 03:34 11/21/18 11:30 11/20/18 11/20/18 11/20/18 15:35 19:40 23:43 Sodium 136.3 L 137.0 137.1 Potassium 4.3 4.2 3.7 Chloride 103 100 99 Carbon Dioxide 25 32 H 28 Anion Gap 8 5 10 BUN 11 12 15 Creatinine 0.48 L 0.68 0.55 Est GFR ( Amer) > 60 > 60 > 60 Est GFR (Non-Af Amer) > 60 > 60 > 60 Glucose 231 H 192 H 242 H Calcium 8.4 8.5 8.8 11/21/18 11/21/18 11/21/18 03:38 07:37 11:30 Sodium 140.1 135.8 L 137.1 Potassium 3.5 L 4.5 D 4.3 Chloride 104 101 101 Carbon Dioxide 30 29 27 Anion Gap 6 6 9 BUN 14 12 12 Creatinine 0.46 L 0.43 L 0.47 L Est GFR ( Amer) > 60 > 60 > 60 Est GFR (Non-Af Amer) > 60 > 60 > 60 Glucose 53 L 314 H 227 H Calcium 8.6 8.2 L 9.1 Assessment & Plan - Diagnosis (1) Diabetic ketoacidosis Qualifiers: Diabetes mellitus type: type 1 Diabetes mellitus complication detail: with coma Qualified Code(s): E10.11 - Type 1 diabetes mellitus with ketoacidosis with coma Is this a current diagnosis for this admission?: Yes Plan: We have been giving her her 70/30 and she is been eating a consistent carb ohydrate diet and her blood sugars are still uncontrolled. She needs supplemental sliding scale insulin to control her blood sugars. She is unable to afford this at home at this time, and her Medicaid application is pending. Our case management coordinator unable to get the supplemental assistance medication for her today, and they will work on that tomorrow. Once that is obtained, she can be discharged home. 11/21/2018-patient was admitted with diabetic ketoacidosis and hyperkalemia she is receiving insulin 70/30, diabetic diet, and Humalog sliding scale. Blood sugar this morning is 53 and the latest one is to 525. She has a brittle diabetes mellitus, going to switch Humalog sliding scale regular sliding scale tonight. Dietary consult was provided. She is also going to receive IV fluids normal saline at 75 cc/h because of the low blood pressures today. Latest potassium level is 4.3. Plan is to check the labs tomorrow. (2) Hyperkalemia Is this a current diagnosis for this admission?: Yes Plan: 11/21/2018-patient potassium level is 4.3 and hyperkalemia is resolved. (3) UTI (urinary tract infection) Is this a current diagnosis for this admission?: Yes Plan: 11/21/2018-patient has UTI cultures positive for E. coli started on levofloxacin 500 mg IV daily. (4) Hypotension Is this a current diagnosis for this admission?: Yes Plan: 11/21/2018-patient's latest blood pressure is 90/53 as per the patient blood pressures always run low and she is asymptomatic. started on IV fluids normal saline at 75 cc/h and plan to check the blood pressures every shift. - Time Time Spent with patient: 15-24 minutes Anticipated discharge: Home
[2018-11-21] MEDS ORDERED: INSULIN REG, HUMAN 100 UNIT/ML 3 ML VIAL (PYX) SUBCUT SCH (16:00)
[2018-11-21] MEDS ORDERED: LEVOFLOXACIN 500 MG/D5W RTU 500 MG/100 ML RTUPB IV SCH (18:00)
--- NOTE | 2018-11-21 19:02 | PDOC DISCHARGE SUMMARY ---
General - Admit/Disc Date/PCP Admission Date/Primary Care Provider: 11/17/18 19:25 Discharge Date: 11/21/18 - Patient signed AMA - Discharge Diagnosis (1) Diabetic ketoacidosis Is this a current diagnosis for this admission?: Yes Summary: 33-year-old female with past medical history of type 1 diabetes mellitus admitted for uncontrolled blood sugars she reported to have a blood sugars more than 400 at home. She was on insulin 7030 at home on sliding scale she cannot afford the Humalog sliding scale at home came in with complaints of polyuria and polydipsia developing abdominal pain nausea and vomitings. She was started on IV insulin and IV bicarb and blood sugars are improved during the hospital stay ketoacidosis was resolved blood sugar this morning around 53 and follow blood sugars shows blood sugar of 225. I discussed with her this morning about her discharge medications and plan is to try the regular insulin sliding scale coverage to see if it is going to avoid the hypoglycemic episodes with Humulin. Patient agreed but later on the nurses called me and told me patient left without signing AMA patient actually left the hospital without notifying anybody. (2) Hyperkalemia Is this a current diagnosis for this admission?: Yes Summary: 11/21/2018-patient was admitted with hyperkalemia probably secondary to diabetic history acidosis hyperkalemia was resolved this morning her potassium level so 4.3. As I mentioned above patient left the hospital without notifying anybody. (3) UTI (urinary tract infection) Is this a current diagnosis for this admission?: Yes Summary: 11/21/2018 urine culture came back positive for E. coli started on levofloxacin 500 mg IV daily today patient agreed to stay another day during the discussion this morning after she left the hospital without notifying anybody. (4) Hypotension Is this a current diagnosis for this admission?: Yes Summary: 11/21/2018-patient is with low blood pressure 94/53 started on IV fluids normal saline at 75 cc/h. Patient left the hospital without notifying anybody. - Additional Information Resuscitation Status: Full Code Home Medications: Hum Insulin NPH/Reg Insulin Hm [Insulin Inj 70-30 (100 Unit/1 ml) 3 ml Vial] 20 unit SUBCUT ASDIR PRN 11/18/18 Insulin Glargine,Hum.rec.anlog [Lantus Insulin Inj 300 Unit/3 ml Pen] 0 unit SUBCUT ASDIR PRN 11/18/18 History of Present Illness History of Present Illness: CHRISTINA DOUGLAS is a 33 year old female 33 year old female with a past medical history of type 1 diabetes and chronic hyperglycemia. Patient presents obtunded and history is obtained by partner at bedside who reports several days of blood sugars in the mid 400s. She sometimes takes insulin once a day and is complained of polyuria polydipsia developing abdominal pain nausea and vomiting. In the emergency room she is found to have severe metabolic acidosis started on IV insulin and bicarb then referred to the hospitalist for admission. Physical Exam Vital Signs: Temp Pulse Resp BP Pulse Ox 99.0 F 98 18 94/53 L 99 11/21/18 10:34 11/21/18 14:00 11/21/18 10:34 11/21/18 10:34 11/21/18 10:34 Intake & Output 11/20/18 11/21/18 11/22/18 06:59 06:59 06:59 Intake Total 1356 3179 Output Total 1000 600 Balance 356 2579 Weight 54.2 kg 54.5 kg General appearance: PRESENT: no acute distress Head exam: PRESENT: atraumatic Eye exam: PRESENT: PERRLA Mouth exam: PRESENT: moist, tongue midline Teeth exam: PRESENT: poor dentation Neck exam: ABSENT: carotid bruit, JVD, lymphadenopathy, thyromegaly Respiratory exam: PRESENT: decreased breath sounds Cardiovascular exam: PRESENT: RRR. ABSENT: diastolic murmur, rubs, systolic murmur GI/Abdominal exam: PRESENT: normal bowel sounds, soft. ABSENT: distended, guarding, mass, organolmegaly, rebound, tenderness Extremities exam: PRESENT: full ROM. ABSENT: calf tenderness, clubbing, pedal edema Neurological exam: PRESENT: alert, awake, oriented to person, oriented to place, oriented to time, oriented to situation, CN II-XII grossly intact. ABSENT: motor sensory deficit Psychiatric exam: PRESENT: appropriate affect, normal mood. ABSENT: homicidal ideation, suicidal ideation Results Laboratory Results: 11/18/18 03:34 11/21/18 11:30 11/20/18 11/20/18 11/21/18 19:40 23:43 03:38 Sodium 137.0 137.1 140.1 Potassium 4.2 3.7 3.5 L Chloride 100 99 104 Carbon Dioxide 32 H 28 30 Anion Gap 5 10 6 BUN 12 15 14 Creatinine 0.68 0.55 0.46 L Est GFR ( Amer) > 60 > 60 > 60 Est GFR (Non-Af Amer) > 60 > 60 > 60 Glucose 192 H 242 H 53 L Calcium 8.5 8.8 8.6 11/21/18 11/21/18 07:37 11:30 Sodium 135.8 L 137.1 Potassium 4.5 D 4.3 Chloride 101 101 Carbon Dioxide 29 27 Anion Gap 6 9 BUN 12 12 Creatinine 0.43 L 0.47 L Est GFR ( Amer) > 60 > 60 Est GFR (Non-Af Amer) > 60 > 60 Glucose 314 H 227 H Calcium 8.2 L 9.1 Qualifiers - * PATIENT BEING DISCHARGED WITH ANY OF THE FOLLOWING DIAGNOSIS: No VTE patient discharged on overlapping Therapy?: No
== END 2018-11-21 15:30 | disposition left against medical advice (07) | DRG 638 ==
LOC: ER 17:10 → EH 19:25 → ICU 21:50 → 4N 11-19 22:45
PROVIDERS: ADMIT Internal Medicine; ATTEND Internal Medicine
DX: E10.11 Type 1 diabetes mellitus with ketoacidosis with coma (principal); E87.2 Acidosis; G93.40 Encephalopathy, unspecified; N39.0 Urinary tract infection, site not specified; B96.20 Unspecified Escherichia coli [E. coli] as the cause of diseases classified elsewhere; E87.5 Hyperkalemia; I95.9 Hypotension, unspecified; G43.909 Migraine, unspecified, not intractable, without status migrainosus; Z88.8 Allergy status to other drugs, medicaments and biological substances
CPT/HCPCS: 36415; 80048; 80053; 80307; 81001; 81025; 82803; 82962; 83036; 83690; 85025; 87086; 87088; 87186; 93005; 93010; 96360; 96361; 99285; J1644; J1815; J3480; J3490; J7030; J7620